=== PATIENT | male | born 1975 | race Caucasian/White ===

== ENCOUNTER 2019-10-09 19:43 | Emergency (ER) | payer OTHER ==
[2019-10-09 19:57] VITALS: TEMP 98.3
[2019-10-09] MEDS ORDERED: CEPHALEXIN 500 MG CAP PO STA (20:01)
[2019-10-09] MEDS ORDERED: LIDOCAINE 1% INJ 10MG/ML (20 ML MDV) SQ STA (20:01)
[2019-10-09] MEDS ORDERED: WATER FOR IRRIG, STERILE 1,000 ML BTL IRRIGATION ONE (20:02)
--- NOTE | 2019-10-09 20:30 | XR ---
EXAMINATION TYPE: XR finger RT DATE OF EXAM: 10/09/2019 COMPARISON: NONE HISTORY: Laceration TECHNIQUE: 3 views FINDINGS: I see no fracture nor dislocation. Joint spaces are fairly normal. There are no erosions. IMPRESSION: Negative right index finger exam. No fracture seen. No evidence of a foreign body.
[2019-10-09] MEDS ORDERED: DIPH,PERTUS(ACELL)TETVAC-LF 0.5 ML VIAL IM ONE (20:47)
[2019-10-09 20:57] VITALS: BP 140/90; PULSE 67; RESP 19
--- NOTE | 2019-10-09 21:00 | ED ---
General Adult HPI - General Chief complaint: Wound/Laceration Stated complaint: R Pointer Finger Lac Time Seen by Provider: 10/09/19 20:00 Source: patient, RN notes reviewed, old records reviewed Mode of arrival: ambulatory Limitations: no limitations - History of Present Illness Initial comments: 44-year-old female patient proceeded chief complaint laceration to distal aspect of second digit on right hand. Patient reports he was using an electric chain saw when he next the tip of this finger. Reports full range of motion of digit. Sensation is intact. Denies any other complaints. The date of last tetanus. Systemic: Pt denies fatigue, fever/chills, rash. Pt denies weakness, night sweats, weight loss. Neuro: Pt denies headache, visual disturbances, syncope or pre-syncope. HEENT: Pt denies ocular discharge or irritation, otalgia, rhinorrhea, pharyngitis or notable lymphadenopathy. Cardiopulmonary: Pt denies chest pain, SOB, heart palpitations, dyspnea on exertion. Abdominal/GI: Pt denies abdominal pain, n/v/d. : Pt denies dysuria, burning w/ urination, frequency/urgency. Denies new onset urinary or bowel incontinence. MSK: Pt denies myalgia, loss of strength or function in extremities. Neuro: Pt denies new onset weakness, paresthesias. - Related Data Allergies Allergy/AdvReac Type Severity Reaction Status Date / Time No Known Allergies Allergy Verified 10/09/19 19:50 Review of Systems ROS Statement: Those systems with pertinent positive or pertinent negative responses have been documented in the HPI. ROS Other: All systems not noted in ROS Statement are negative. Past Medical History Past Medical History: No Reported History History of Any Multi-Drug Resistant Organisms: None Reported Additional Past Surgical History / Comment(s): back surgery. hip surgery. Past Psychological History: PTSD Smoking Status: Never smoker Past Alcohol Use History: Rare Past Drug Use History: None Reported General Exam - General Exam Comments Initial Comments: Constitutional: NAD, AOX3, Pt has pleasant affect. HEENT: NC/AT, trachea midline, neck supple. Mucous membranes moist.EOM intact. There is no scleral icterus. No pallor noted. Cardiopulmonary: RRR, no murmurs, rubs or gallops, no JVD noted. Lungs CTAB in anterior and posterior jamison. No peripheral edema. Neuro: CN II-XII grossly intact. No raccon eyes MSK: Full active ROM in upper and lower extremities, 5/5 stregnth. Derm: 1cm laceration distal aspect of second digit on right hand. Pad of finger. Vigorously irrigated. No osseous process or ligamentous process no foreign body. Approximated 2 simple interrupted sutures. Limitations: no limitations Course Vital Signs 10/09/19 10/09/19 19:45 20:55 Temperature 98.3 F Pulse Rate 79 67 Respiratory 17 19 Rate Blood Pressure 142/66 140/90 O2 Sat by Pulse 97 97 Oximetry Procedures - Laceration Laceration #1 Consent Obtained: verbal consent Indication: laceration Site: other (finger 2nd digit right hand pad of distal finger ) Size (cm): 1 Description: linear Depth: simple, single layer Anesthetic Used: lidocaine 1% Anesthesia Technique: local infiltration Amount (mls): 2 Pre-repair: wound explored, irrigated extensively, deep structures intact (pt has full active ROM of finger before and after suture placement. Capillary refill <2 seconds. sensation intact. ) Type of Sutures: nylon Size of Sutures: 5-0 Number of Sutures: 2 Technique: simple, interrupted Patient Tolerated Procedure: well, no complications Medical Decision Making - Medical Decision Making 44-year-old male patient presents to chief complaint of finger laceration. Patient vital signs stable. Tetanus updated. Plain film negative. Approximated emergency department vigorously irrigated discharge with outpatient follow-up and return precautions. Case discussed with Dr. Briseno. Disposition Clinical Impression: Laceration Disposition: HOME SELF-CARE Condition: Stable Instructions (If sedation given, give patient instructions): Laceration (ED) Additional Instructions: Please return for suture removal: Hand: 7-10 days Please monitor for signs and symptoms of infection including: redness, warmth, drainage, discharge. Please return to ED if these signs or symptoms occur, new signs or symptoms develop or if condition worsens in anyway. Follow up with PCP in 1-[address] Malave is validation architect for new patients for a PCP. Call him first. I provided 2 other PCP's which are taking new patients. Is patient prescribed a controlled substance at d/c from ED?: No Referrals: None,Stated [Primary Care Provider] - 1-2 days Nabor Noonan MD [STAFF PHYSICIAN] - 1-2 days Dominick Christensen MD [REFERRING] - 1-2 days Luther Gray [STAFF PHYSICIAN] - 1-2 days
== END 2019-10-09 21:03 | disposition home or self-care (01) ==
LOC: EC 19:43
DX: S61.210A Laceration without foreign body of right index finger without damage to nail, initial encounter (principal); Z23 Encounter for immunization; W31.2XXA Contact with powered woodworking and forming machines, initial encounter
CPT/HCPCS: 73140; 90715; 99283; 12001; 90471; J2001

== ENCOUNTER 2019-10-28 14:13 | Emergency (ER) | payer OTHER ==
[2019-10-28 14:17] VITALS: BP 153/85; PULSE 92; RESP 16; TEMP 98.9
--- NOTE | 2019-10-28 14:26 | ED ---
Upper Extremity HPI - General Chief Complaint: Extremity Injury, Upper Stated Complaint: Left shoulder injury Time Seen by Provider: 10/28/19 14:18 Source: patient, RN notes reviewed, old records reviewed Mode of arrival: ambulatory Limitations: no limitations - History of Present Illness Initial Comments: This is a 44-year-old male DF for evaluation of shoulder pain patient did have shoulder pain recently this past month. Patient has been persistent in pain. Decreased range of motion of the left shoulder patient has severe pain with range of motion trauma was just starting again doing some moving and repetitive stress MD Complaint: Injury to:: left, shoulder -: month(s) Other Extremity Injury: Shoulder: Left Other Injuries: none Handedness: right Place: home Severity scale (1-10): 5 Improves With: none Worsens With: none Context: other (Recurrent usage) Associated Symptoms: denies other symptoms - Related Data Allergies Allergy/AdvReac Type Severity Reaction Status Date / Time No Known Allergies Allergy Verified 10/28/19 14:14 Review of Systems ROS Statement: Those systems with pertinent positive or pertinent negative responses have been documented in the HPI. ROS Other: All systems not noted in ROS Statement are negative. Past Medical History Past Medical History: No Reported History History of Any Multi-Drug Resistant Organisms: None Reported Additional Past Surgical History / Comment(s): back surgery. hip surgery. Past Psychological History: PTSD Smoking Status: Current every day smoker Past Alcohol Use History: Rare Past Drug Use History: None Reported General Exam Limitations: no limitations General appearance: alert, in no apparent distress Head exam: Present: atraumatic, normocephalic, normal inspection Eye exam: Present: normal appearance, PERRL, EOMI. Absent: scleral icterus, conjunctival injection, periorbital swelling ENT exam: Present: normal exam, mucous membranes moist Neck exam: Present: normal inspection. Absent: tenderness, meningismus, lymphadenopathy Respiratory exam: Present: normal lung sounds bilaterally. Absent: respiratory distress, wheezes, rales, rhonchi, stridor Cardiovascular Exam: Present: regular rate, normal rhythm, normal heart sounds. Absent: systolic murmur, diastolic murmur, rubs, gallop, clicks GI/Abdominal exam: Present: soft, normal bowel sounds. Absent: distended, tenderness, guarding, rebound, rigid Extremities exam: Present: normal inspection, full ROM, normal capillary refill. Absent: tenderness, pedal edema, joint swelling, calf tenderness Back exam: Present: normal inspection Neurological exam: Present: alert, oriented X3, CN II-XII intact Psychiatric exam: Present: normal affect, normal mood Skin exam: Present: warm, dry, intact, normal color. Absent: rash Course Vital Signs 10/28/19 14:14 Temperature 98.9 F Pulse Rate 92 Respiratory 16 Rate Blood Pressure 153/85 O2 Sat by Pulse 98 Oximetry - Reevaluation(s) Reevaluation #1: 10/28/19 14:24 Medical records reviewed Reevaluation #2: 10/28/19 14:44 Patient's pain is improved Medical Decision Making - Medical Decision Making 44 mailed ER with nonspecific left shoulder pain. X-rays otherwise negative pain is improved and patient can be discharged home - Radiology Data Radiology results: report reviewed (X-ray left shoulder is negative for acute disease), image reviewed Disposition Clinical Impression: Strain of shoulder, Frozen shoulder Disposition: HOME SELF-CARE Condition: Good Instructions (If sedation given, give patient instructions): Shoulder Sprain (ED) Is patient prescribed a controlled substance at d/c from ED?: No Referrals: Amina Kern DO [Primary Care Provider] - 1-2 days
[2019-10-28] MEDS ORDERED: traMADol 50 MG STARTER PACK 3 TAB BTL PO STA (14:36)
[2019-10-28] MEDS ORDERED: diazePAM 5 MG TAB PO STA (14:36)
[2019-10-28] MEDS ORDERED: traMADol 50 MG TAB PO STA (14:36)
[2019-10-28] MEDS ORDERED: dexAMETHasone 4 MG TAB PO STA (14:36)
[2019-10-28] MEDS ORDERED: KETOROLAC 60 MG/2 ML VIAL IM STA (14:36)
--- NOTE | 2019-10-28 15:09 | XR ---
EXAMINATION TYPE: XR shoulder complete LT DATE OF EXAM: 10/28/2019 COMPARISON: NONE HISTORY: Pain TECHNIQUE: 3 views FINDINGS: I see no fracture nor dislocation. Joint spaces are normal. There are no pathologic calcifi cations. IMPRESSION: Negative left shoulder exam. No fracture seen.
== END 2019-10-28 16:06 | disposition home or self-care (01) ==
LOC: EC 14:13
DX: S46.912A Strain of unspecified muscle, fascia and tendon at shoulder and upper arm level, left arm, initial encounter (principal); M75.02 Adhesive capsulitis of left shoulder; F17.200 Nicotine dependence, unspecified, uncomplicated; X50.9XXA Other and unspecified overexertion or strenuous movements or postures, initial encounter
CPT/HCPCS: 73030; 96372; 99284; J8540; J1885

== ENCOUNTER → 2019-11-30 | Outpatient (CLI) | payer OTHER ==
--- NOTE | 2019-11-30 13:58 | MR ---
EXAMINATION TYPE: MR shoulder LT wo con DATE OF EXAM: 11/30/2019 1:51 PM COMPARISON: NONE HISTORY: L shoulder pain TECHNIQUE: Multiplanar multispin echo imaging of the left shoulder was performed. FINDINGS: Rotator cuff : There is thickening and heterogeneity of the supraspinatus tendon compatible with form grader evelia tendinopathy. No evidence for full-thickness tear or partial tear. The subscapularis constituent of the rotator cuff is intact. Bursa: No bursal effusion or thickening is seen. Musculature: There is no muscular tear, contusion, or atrophy. Acromioclavicular joint : Subacromial spurring resulting in impingement. AC joint arthropathy identif ied. Osseous structures : There are no fractures or regions of abnormal bone marrow signal intensity. Long biceps tendon : The biceps tendon is normally situated within the bicipital groove. No complete or partial biceps tendon tear is present. Glenohumeral Joint fluid : There is no glenohumeral joint effusion. Cartilage and Bone : No focal hyaline cartilage defects are noted. No Hill-Sachs, reverse Hill-Sachs, or bony Bankart lesions are seen. Labrum : There are no SLAP or soft tissue Bankart lesions. No paralabral cysts are seen. OTHER FINDINGS : none IMPRESSION: 1. Chronic tendinopathy supraspinatus tendon with subacromial impingement.
== END | disposition home or self-care (01) ==
LOC: RADMRIMAIN 12:59
PROVIDERS: ATTEND Orthopaedic Surgery
DX: M67.814 Other specified disorders of tendon, left shoulder (principal)

== ENCOUNTER → 2019-11-30 | Outpatient (CLI) | payer OTHER ==
[2019-11-30 20:20] LABS: Albumin 4.9 g/dL (3.80-4.90); Albumin/Globulin Ratio 2.33 (1.60-3.17); Anion Gap 12.4 mmol/L (4.00-12.00); BUN/Creat Ratio 18.75 Ratio (12.00-20.00); Calcium 10.4 mg/dL (8.7-10.3); Carbon Dioxide 21.6 mmol/L (21.6-31.8); Globulin 2.1 g/dL (1.6-3.3); Non-African American GFR(CKD) 107.9 (60.0-200.0); Potassium 3.9 mmol/L (3.5-5.5); Total Bilirubin 0.7 mg/dL (0.2-1.2)
[2019-11-30 20:28] LABS: T4, Free (Free Thyroxine) 1.5 ng/dL (0.80-1.80)
[2019-11-30 20:49] LABS: Valproic Acid (Depakene) 16.1 ug/mL (50.0-100.0)
== END | disposition home or self-care (01) ==
LOC: LABWHC1 13:52
PROVIDERS: ATTEND Psychiatry & Neurology Psychiatry
DX: Z51.81 Encounter for therapeutic drug level monitoring (principal); Z79.899 Other long term (current) drug therapy
CPT/HCPCS: 36415; 80053; 80164; 84439; 84443

== ENCOUNTER → 2020-01-08 | Outpatient (CLI) | payer OTHER ==
[2020-01-08 11:13] LABS: Basophils # (A) 0.1 k/uL (0-0.2); Basophils % (A) 1 %; Eosinophils # (A) 0.2 k/uL (0-0.7); Eosinophils % (A) 3 %; HCT 45.1 % (39.0-53.0); HGB 15.2 gm/dL (13.0-17.5); Lymphocytes # (A) 2.2 k/uL (1.0-4.8); Lymphocytes % (A) 37 %; MCH 32.3 pg (25.0-35.0); MCHC 33.7 g/dL (31.0-37.0); MCV 95.7 fL (80.0-100.0); Mean Platelet Volume 7.1; Monocytes # (A) 0.4 k/uL (0-1.0); Monocytes % (A) 6 %; Neutrophils % (A) 51 %; Platelet Count 358 k/uL (150-450); RBC 4.71 m/uL (4.30-5.90)
[2020-01-08 11:19] LABS: Potassium 4.5 mmol/L (3.5-5.1)
== END | disposition home or self-care (01) ==
LOC: LABPAT 09:59
PROVIDERS: ATTEND Orthopaedic Surgery
DX: M75.41 Impingement syndrome of right shoulder (principal)
CPT/HCPCS: 36415; 80051; 85025

== ENCOUNTER 2020-01-17 05:36 | Day surgery (SDC) | payer OTHER ==
[2020-01-15 14:23] VITALS: BMI 37.6
--- NOTE | 2020-01-16 17:50 | HP ---
HISTORY AND PHYSICAL DATE OF SURGERY: 01/17/2020 Alfonso Tyson is a 44-year-old gentleman seen with progressive left shoulder pain. Options for treatment were discussed with him. He elected to proceed with left shoulder arthroscopy. Consent regarding the procedure was obtained. PAST MEDICAL HISTORY: Anxiety. PAST SURGICAL HISTORY: Total hip arthroplasty, lumbar spine surgery. DAILY MEDICATIONS: Omeprazole, Depakote, Prozac. ALLERGIES: NONE. SOCIAL HISTORY: He smokes cigarettes currently. PHYSICAL EVALUATION OF THE LEFT SHOULDER: Flexion 30 degrees, abduction 30 degrees. External rotation is 10 degrees. Tenderness along the anterolateral acromion. Tenderness along the rotator cuff insertion site. Impingement is positive at 60 degrees. Drop-arm sign is positive. His distal neurovascular exam is intact. RADIOGRAPHS: Radiographs of the left shoulder revealed a type 2 anterior acromion, evidence for acromioclavicular joint osteoarthritis. Left shoulder MRI revealed chronic rotator cuff tendinopathy, impingement and acromioclavicular joint osteoarthritis. IMPRESSION: 1. Left shoulder impingement with probable rotator cuff tear. 2. Left shoulder acromioclavicular joint osteoarthritis. PLAN: Left shoulder arthroscopy with subacromial decompression, arthroscopic rotator cuff repair, arthroscopic Renny procedure and debridement. MMODL / IJN: [id number] /
[~2020-01-17 05:36] MED LIST: ceFAZolin 3 GM in SODIUM CHLORIDE 0.9% 100 ML IVPB ONE
[2020-01-17] MEDS ORDERED: LACTATED RINGERS 1,000 ML IV SCH (05:38)
[2020-01-17] MEDS ORDERED: DEXAMETHASONE SOD PHOSPHATE 10 MG/ML 1 ML VIAL IV ONE (05:38)
[2020-01-17] MEDS ORDERED: MIDAZOLAM 2 MG/2 ML VIAL IV PRN (05:38)
[2020-01-17] MEDS ORDERED: ONDANSETRON 4 MG/2 ML VIAL IVP ONE (05:38)
[2020-01-17] MEDS ORDERED: PROPOFOL 10 MG/ML 20 ML VIAL IV ONE (07:24)
[2020-01-17] MEDS ORDERED: ROCURONIUM 10 MG/ML (10 ML VIAL) IV ONE (07:24)
[2020-01-17] MEDS ORDERED: GLYCOPYRROLATE 0.2 MG/ML 2 ML VIAL ONE (07:24)
[2020-01-17] MEDS ORDERED: NEOSTIGMINE 1 MG/ML 10 ML VIAL ONE (07:24)
[2020-01-17] MEDS ORDERED: fentaNYL (PF) 50 MCG/ML 2 ML AMP ONE (07:24)
[2020-01-17] MEDS ORDERED: SUCCINYLCHOLINE CHLORIDE VIAL 200 MG/10 ML VIAL IV ONE (07:24)
[2020-01-17] MEDS ORDERED: MIDAZOLAM 2 MG/2 ML VIAL ONE (07:24)
[2020-01-17] MEDS ORDERED: ROPIVACAINE 5 MG/ML 30 ML VIAL ONE (07:24)
[2020-01-17] MEDS ORDERED: LIDOCAINE 1% INJ 10MG/ML (20 ML MDV) ONE (07:24)
[2020-01-17] MEDS: HYDROmorphone 0.5 MG/0.5 ML SYRINGE IVP PRN ×4 (09:01→09:24)
--- NOTE | 2020-01-17 09:11 | P.OP ---
Date of Procedure: 01/17/20 Preoperative Diagnosis: Left shoulder impingement Postoperative Diagnosis: 1. Left shoulder rotator cuff tear 2. Left shoulder impingement Procedure(s) Performed: 1. Left shoulder arthroscopic rotator cuff repair 2. Left shoulder arthroscopic subacromial decompression Implants: 14.75 Arthrex swivel lock anchor Anesthesia: GETA, regional (Interscalene block) Surgeon: Raffy Guerin Estimated Blood Loss (ml): 10 Pathology: none sent Condition: stable Disposition: PACU Indications for Procedure: 44-year-old patient seen with progressive left shoulder pain. After treatment options were discussed, he elected to proceed with arthroscopy. Operative Findings: See description of procedure Description of Procedure: Patient underwent an interscalene block by department of anesthesia. The patient was then taken to the operative suite. The patient underwent a general anesthetic by the department of anesthesia. The patient was placed into a lateral position and secured. There was appropriate padding of the bony prominence. Left shoulder was then prepped and draped in normal sterile orthopedic fashion. We placed the extremity in 10 pounds of longitudinal traction. A posterior incision was now made for a posterior working portal site. The trocar and cannula were inserted into the glenohumeral joint. Arthroscopy was initiated. Spinal needle was now inserted anteriorly, to ascertain the anterior working portal site. An incision was now made in that area, a trocar was inserted followed by a probe. There was some mild fraying of the anterior labrum. The biceps tendon was stable. The remainder labrum was stable. There was mild grade 1 chondromalacia. I introduced a motorized shaver and debrided that small area of labral fraying. I reintroduced the probe and noted good stability about the residual meniscus. Instruments were now removed from the glenohumeral joint. Utilizing the posterior working portal site, the trocar and cannula were inserted into the subacromial space. Arthroscopy initiated. I made an incision 2 fingerbreadths lateral to the acromion. I introduced my trocar followed by my ArthroCare ablator. I now began ablating thick subacromial bursal tissue, which exposed the undersurface of the anterior acromion. There was diminished subacromial space. There was a very prominent anterior acromion. A motorized bur was introduced and a subacromial decompression was performed. I also excised some osteophytes off the inferior aspect of the distal clavicle. The AC joint was visualized and noted to be moderately arthritic. I did not think enough t oward a Renny procedure. I turned my attention to the rotator cuff tendon. There was some partial tearing along the anterior distal supraspinatus. Upon probing the area there was a full-thickness perforation present. A motorize shaver was introduced I debrided the margins getting down to stable tendon tissue. The defect measured 11.25 cm. I abraded the footprint with a motorized bur. I passed 2 everted mattress sutures through good bites of rotator cuff tendon with the assistance of Angus PEREA. I now punched a hole in the footprint area for insertion of an anchor. I now passed all 4 limbs of suture through the eyelet of a 4.75 Arthrex swivel lock anchor. I placed the eyelet into our pre-punched hole. I held it in position while Angus PEREA tensioned all 4 sutures and then deployed the anchor with good fixation noted. All residual suture limbs were now clipped. We had good compression of the tendon along the entire footprint. I injected 1 mL Renyte intra-articular. Instruments now removed from the portal sites. All portal sites were approximated with nylon suture. Sterile dressings were applied followed by a shoulder sling. Dwayne PEREA assisted in this case. The patient was awakened, transferred to a bed, and taken to recovery in stable condition.
[2020-01-17 09:12] VITALS: TEMP 98
[2020-01-17 09:50] VITALS: RESP 16
[2020-01-17 10:20] VITALS: BP 123/75; PULSE 94
--- NOTE | 2020-01-17 12:21 | P.ANPRN ---
Procedure Note - Anesthesia - Nerve Block Performed Left Interscalene Single Time Out Performed: Yes ([id number]) Date of Procedure: 01/17/20 Procedure Start Time: 06:54 Procedure Stop Time: 07:01 Location of Patient: PreOp Indication: Acute Post-Operative Pain, Requested by Surgeon Specifically requested for management of pain by DrIsrael: Raffy Guerin Sedation Type: Sedate with meaningful contact maintained Preparation: Sterile Prep Position: Supine Catheter: None Needle Types: Pajunk Needle Gauge: 21 Ultrasound used to visualize needle placement: Yes Ultrasound used to observe medication spread: Yes Injectate: 0.5% Ropivacaine (see comment for volume) (30cc) Blood Aspirated: No Pain Paresthesia on Injection Noted: No Resistance on Injection: Normal Image Stored and Saved: Yes Events: Uneventful and Well Tolerated
== END 2020-01-17 10:37 | disposition home or self-care (01) ==
LOC: OR 05:36
PROVIDERS: ATTEND Orthopaedic Surgery
DX: M75.102 Unspecified rotator cuff tear or rupture of left shoulder, not specified as traumatic (principal); M25.812 Other specified joint disorders, left shoulder; M94.212 Chondromalacia, left shoulder; M25.712 Osteophyte, left shoulder; F41.9 Anxiety disorder, unspecified; F43.10 Post-traumatic stress disorder, unspecified; G47.33 Obstructive sleep apnea (adult) (pediatric); Z99.89 Dependence on other enabling machines and devices; F17.210 Nicotine dependence, cigarettes, uncomplicated; Z79.891 Long term (current) use of opiate analgesic; Z79.899 Other long term (current) drug therapy
CPT/HCPCS: 64415; 76942; 29826; 29827; C1713; Q4212; J2250; J0330; J1100; J2710; J0690; J2405; J2001; J3010; J2795; J2704; J1170

== ENCOUNTER 2020-04-14 14:30 | Emergency (ER) | payer OTHER ==
[2020-04-14 14:48] VITALS: RESP 18; TEMP 98
[2020-04-14] MEDS ORDERED: SODIUM CHLORIDE 0.9% 1,000 ML IV STA (15:01)
[2020-04-14] MEDS ORDERED: KETOROLAC 15 MG/ML 1 ML VIAL IVP STA (15:01)
[2020-04-14] MEDS ORDERED: MORPHINE SULFATE 4 MG/ML SYRINGE IV STA (15:01)
--- NOTE | 2020-04-14 15:05 | ED ---
General Adult HPI - General Chief complaint: Abdominal Pain Stated complaint: Poss kidney stone Time Seen by Provider: 04/14/20 14:53 Source: patient Mode of arrival: ambulatory Limitations: no limitations - History of Present Illness Initial comments: Dictation was produced using [employer] dictation software. please excuse any grammatical, word or spelling errors. This patient was cared for during a federal and state declared state of emergency secondary to Covid 19 Chief Complaint: 44-year-old male presents with abnormal outpatient CT History of Present Illness: Is a 44-year-old male who has past medical history of kidney stones. Patient has extensive history. 8 years ago patient states he began having kidney stones and passed them frequently. Patient presented to the [facility] in [place]. He had an outpatient CT performed. Patient was instructed to come to the emergency department for treatment of kidney stone. P gelacio does not have any other details of the size he does report that it's in the distal one third of the right ureter. Patient states that since last night he's been having right-sided flank pain. Patient states the symptoms are typical of his usual kidney stone pain. Denies any constitutional symptoms. The ROS documented in this emergency department record has been reviewed and confirmed by me. Those systems with pertinent positive or negative responses have been documented in the HPI. All other systems are other negative and/or noncontributory. PHYSICAL EXAM: General Impression: Alert and oriented x3, mild distress secondary to pain HEENT: Normocephalic atraumatic, extra-ocular movements intact, pupils equal and reactive to light bilaterally, mucous membranes moist. Cardiovascular: Heart regular rate and rhythm Chest: Able to complete full sentences, no retractions, no tachypnea Abdomen: abdomen soft, non-tender, non-distended, no organomegaly Musculoskeletal: Pulses present and equal in all extremities, no peripheral edema Motor: no focal deficits noted Neurological: CN II-XII grossly intact, no focal motor or sensory deficits noted Skin: Intact with no visualized rashes Psych: Normal affect and mood ED course: 44-year-old male presents today with kidney stones seen on outpatient computed tomography scan. Signs upon arrival are within acceptable limits. Patient is in mild distress secondary to pain. Patient is extensive history of kidney stones. States that he has a hypercalcemic issue that causes him to form frequent calcium oxalate kidney stones.An attempt was made to obtain report or any sort of confirmation of patient's CT results from today. My escrow secretary did call the CAT scan department at the [place]. Also, they are unable to provide us any reports from today scan. Neither, either able to provide us with the actual image. Laboratory evaluation obtained. CBC, metabolic panel, urinalysis is obtained. Most of labs are unremarkable except for 136 red blood cells. Ultrasound was obtained showing mild right-sided hydronephrosis. The chin reevaluated after IV fluids and analgesics with stable medical condition. Patient is agreeable for discharge. He has a urologist in [place] however generally his primary care doctor manages his kidney stones and some occasional. Patient given prescription for analgesia. Told to to follow-up with his primary care physician. - Related Data Home Medications Medication Instructions Recorded Confirmed FLUoxetine HCL [PROzac] 20 mg PO DAILY 01/15/20 01/17/20 HYDROcodone/APAP 7.5-325MG [Ridgeway 1 tab PO Q6HR PRN 01/15/20 01/17/20 7.5-325] Previous Rx's Medication Instructions Recorded oxyCODONE HCL/ACETAMINOPHEN 1 tab PO Q6HR PRN 3 Days #28 tab 01/17/20 [Percocet 7.5-325 mg] HYDROcodone/APAP 5-325MG [Ridgeway 1 tab PO Q6HR PRN 3 Days #12 tab 04/14/20 5-325] Allergies Allergy/AdvReac Type Severity Reaction Status Date / Time No Known Allergies Allergy Verified 04/14/20 14:48 Review of Systems ROS Statement: Those systems with pertinent positive or pertinent negative responses have been documented in the HPI. ROS Other: All systems not noted in ROS Statement are negative. Past Medical History Past Medical History: GERD/Reflux, Hypertension History of Any Multi-Drug Resistant Organisms: None Reported Past Surgical History: Back Surgery, Joint Replacement, Orthopedic Surgery Additional Past Surgical History / Comment(s): back surgery. hip surgery. Past Psychological History: PTSD Smoking Status: Former smoker Past Alcohol Use History: None Reported Past Drug Use History: None Reported General Exam Limitations: no limitations Course Vital Signs 04/14/20 04/14/20 14:44 15:21 Temperature 98.0 F Pulse Rate 82 81 Respiratory 18 18 Rate Blood Pressure 160/101 152/100 O2 Sat by Pulse 96 98 Oximetry Medical Decision Making - Lab Data Result diagrams: 04/14/20 15:21 04/14/20 15:21 Lab Results 04/14/20 04/14/20 04/14/20 Range/Units 15:21 15:21 15:21 WBC 11.4 H (3.8-10.6) k/uL RBC 4.88 (4.30-5.90) m/uL Hgb 15.3 (13.0-17.5) gm/dL Hct 44.4 (39.0-53.0) % MCV 91.0 (80.0-100.0) fL MCH 31.3 (25.0-35.0) pg MCHC 34.5 (31.0-37.0) g/dL RDW 12.5 (11.5-15.5) % Plt Count 409 (150-450) k/uL MPV 6.9 Neutrophils % 60 % Lymphocytes % 29 % Monocytes % 6 % Eosinophils % 3 % Basophils % 1 % Neutrophils # 6.9 (1.3-7.7) k/uL Lymphocytes # 3.3 (1.0-4.8) k/uL Monocytes # 0.7 (0-1.0) k/uL Eosinophils # 0.3 (0-0.7) k/uL Basophils # 0.1 (0-0.2) k/uL Sodium 141 (137-145) mmol/L Potassium 4.1 (3.5-5.1) mmol/L Chloride 104 (98-107) mmol/L Carbon Dioxide 25 (22-30) mmol/L Anion Gap 12 mmol/L BUN 18 (9-20) mg/dL Creatinine 0.92 (0.66-1.25) mg/dL Est GFR (CKD-EPI)AfAm >90 (>60 ml/min/1.73 sqM) Est GFR (CKD-EPI)NonAf >90 (>60 ml/min/1.73 sqM) Glucose 93 (74-99) mg/dL Calcium 10.2 (8.4-10.2) mg/dL Urine Color Yellow Urine Appearance Clear (Clear) Urine pH 5.5 (5.0-8.0) Ur Specific [place]ley 1.021 (1.001-1.035) Urine Protein Trace H (Negative) Urine Glucose (UA) Negative (Negative) Urine Ketones Negative (Negative) Urine Blood Large H (Negative) Urine Nitrite Negative (Negative) Urine Bilirubin Negative (Negative) Urine Urobilinogen <2.0 (<2.0) mg/dL Ur Leukocyte Esterase Trace H (Negative) Urine RBC 136 H (0-5) /hpf Urine WBC 5 (0-5) /hpf Urine Mucus Few H (None) /hpf Disposition Clinical Impression: Kidney stone Disposition: HOME SELF-CARE Condition: Fair Instructions (If sedation given, give patient instructions): Kidney Stones (ED) Prescriptions: HYDROcodone/APAP 5-325MG [Ridgeway 5-325] 1 tab PO Q6HR PRN 3 Days #12 tab PRN Reason: Severe Pain Is patient prescribed a controlled substance at d/c from ED?: Yes If prescribed controlled substance>3 days was MAPS reviewed?: Prescribed <3 Days Referrals: Amina Kern DO [Primary Care Provider] - 1-2 days Time of Disposition: 17:04
[2020-04-14 15:29] LABS: Basophils # (A) 0.1 k/uL (0-0.2); Basophils % (A) 1 %; Eosinophils # (A) 0.3 k/uL (0-0.7); Eosinophils % (A) 3 %; HCT 44.4 % (39.0-53.0); HGB 15.3 gm/dL (13.0-17.5); Lymphocytes # (A) 3.3 k/uL (1.0-4.8); Lymphocytes % (A) 29 %; MCH 31.3 pg (25.0-35.0); MCHC 34.5 g/dL (31.0-37.0); Mean Platelet Volume 6.9; Monocytes # (A) 0.7 k/uL (0-1.0); Monocytes % (A) 6 %; Neutrophils # (A) 6.9 k/uL (1.3-7.7); Neutrophils % (A) 60 %; Platelet Count 409 k/uL (150-450); RBC 4.88 m/uL (4.30-5.90); RDW 12.5 % (11.5-15.5); WBC 11.4 k/uL (3.8-10.6)
[2020-04-14 15:32] LABS: Appearance,Urine Clear (Clear); Bilirubin,Urine Negative (Negative); Blood,Urine Large (Negative); Color,Urine Yellow; Glucose,Urine (UA) Negative (Negative); Ketones,Urine Negative (Negative); Leukocyte Esterase,Urine Trace (Negative); Mucus,Urine Few /hpf; Nitrite,Urine Negative (Negative); PH, Urine 5.5 (5.0-8.0); Protein,Urine Trace (Negative); RBC,Urine 136 /hpf (0-5); Specific Gravity,Urine 1.021 (1.001-1.035); Urobilinogen,Urine <2.0 mg/dL (<2.0); WBC,Urine 5 /hpf (0-5)
[2020-04-14 15:38] LABS: African American GFR (CKD) >90 (>60 ml/min/1.73 sqM); Anion Gap 12 mmol/L; Blood Urea Nitrogen 18 mg/dL (9-20); Calcium 10.2 mg/dL (8.4-10.2); Carbon Dioxide 25 mmol/L (22-30); Chloride 104 mmol/L (98-107); Glucose 93 mg/dL (74-99); Non-African American GFR(CKD) >90 (>60 ml/min/1.73 sqM); Potassium 4.1 mmol/L (3.5-5.1); Sodium 141 mmol/L (137-145)
--- NOTE | 2020-04-14 16:50 | US ---
EXAMINATION TYPE: US kidneys/renal and bladder DATE OF EXAM: 04/14/2020 COMPARISON: NONE CLINICAL HISTORY: right flank pain. RLQ pain hx of stone EXAM MEASUREMENTS: Right Kidney: 13.7 x 7.9 x 5.7 cm Left Kidney: 13.5 x 6.1 x 5.1 cm Right Kidney: No definite stone visualized mild hyd Left Kidney: No hydronephrosis or masses seen Bladder: anechoic Bilateral Jets seen: No just right No nephrolithiasis is seen. No masses are identified. The urinary bladder is anechoic. Bilateral ureteral jets are seen. IMPRESSION: There is mild right-sided hydronephrosis. No evidence of a renal mass. There is right side ureteral j et demonstrated. Kidneys appear enlarged.
[2020-04-14 17:37] VITALS: BP 148/87; PULSE 79
== END 2020-04-14 17:37 | disposition home or self-care (01) ==
LOC: EC 14:30
DX: N20.0 Calculus of kidney (principal); F43.10 Post-traumatic stress disorder, unspecified; Z79.899 Other long term (current) drug therapy; Z87.891 Personal history of nicotine dependence
CPT/HCPCS: 36415; 80048; 85025; 81001; 76770; 99284; 96374; 96375; 96361 ×2; J2270; J1885

== ENCOUNTER 2020-04-18 12:10 | Emergency (ER) | payer OTHER ==
[2020-04-18 12:22] VITALS: RESP 18
[2020-04-18] MEDS ORDERED: MORPHINE SULFATE 4 MG/ML SYRINGE IV STA (12:33)
[2020-04-18] MEDS ORDERED: SODIUM CHLORIDE 0.9% 1,000 ML IV STA (12:33)
[2020-04-18] MEDS ORDERED: KETOROLAC 15 MG/ML 1 ML VIAL IVP STA (12:33)
--- NOTE | 2020-04-18 12:35 | ED ---
General Adult HPI - General Chief complaint: Abdominal Pain Stated complaint: revisit - kidney stone Time Seen by Provider: 04/18/20 12:23 Source: patient Mode of arrival: ambulatory Limitations: no limitations - History of Present Illness Initial comments: Dictation was produced using [employer] dictation software. please excuse any grammatical, word or spelling errors. This patient was cared for during a federal and state declared state of emerge ncy secondary to Covid 19 Chief Complaint: 44-year-old male presents emergency department for persistent right-sided flank pain. History of Present Illness: 44-year-old man who was seen by myself 4 days ago for kidney stone. Patient has history of kidney stones for several years. He had a outpatient CT performed 4 days ago that showed nephrolithiasis. At that time we attempted to obtain patient's image or at least the radiology read and was unable to do so. Patient states that since being discharged from the emergency room that day he reports that his symptoms have been persistent and not really improving. Denies any constitutional symptoms. No history states that he does have some mild left-sided flank pain as well. He does feel some chills. Denies any nausea or vomiting. The ROS documented in this emergency department record has been reviewed and confirmed by me. Those systems with pertinent positive or negative responses have been documented in the HPI. All other systems are other negative and/or noncontributory. PHYSICAL EXAM: General Impression: Alert and oriented x3, mild distress secondary to pain. HEENT: Normocephalic atraumatic, extra-ocular movements intact, pupils equal and reactive to light bilaterally, mucous membranes moist. Cardiovascular: Heart regular rate and rhythm Chest: Able to complete full sentences, no retractions, no tachypnea Abdomen: abdomen soft, non-tender, non-distended, no organomegaly Musculoskeletal: Pulses present and equal in all extremities, no peripheral edema Motor: no focal deficits noted Neurological: CN II-XII grossly intact, no focal motor or sensory deficits noted Skin: Intact with no visualized rashes Psych: Normal affect and mood ED course: 44-year-old male with clinical presentation consistent with persistent kidney stone pain. Vital signs upon arrival are within acceptable limits. Laboratory evaluation obtained. CBC, metabolic panel is unremarkable. Urinalysis shows 8 white blood cells. Patient reevaluated at bedside found to be in stable medical condition. Disposition options were discussed with patient. He has an appointment with his primary care physician and urologist early next week. He is agreeable for discharge. States that his symptoms are improved. Patient given by mouth analgesia to go home with. - Related Data Home Medications Medication Instructions Recorded Confirmed FLUoxetine HCL [PROzac] 20 mg PO DAILY 01/15/20 01/17/20 HYDROcodone/APAP 7.5-325MG [[place] 1 tab PO Q6HR PRN 01/15/20 01/17/20 7.5-325] Previous Rx's Medication Instructions Recorded oxyCODONE HCL/ACETAMINOPHEN 1 tab PO Q6HR PRN 3 Days #28 tab 01/17/20 [Percocet 7.5-325 mg] HYDROcodone/APAP 5-325MG [[place] 1 tab PO Q6HR PRN 3 Days #12 tab 04/14/20 5-325] HYDROcodone/APAP 5-325MG [[place] 1 tab PO Q6HR PRN 3 Days #18 tab 04/18/20 5-325] Allergies Allergy/AdvReac Type Severity Reaction Status Date / Time No Known Allergies Allergy Verified 04/18/20 12:21 Review of Systems ROS Statement: Those systems with pertinent positive or pertinent negative responses have been documented in the HPI. ROS Other: All systems not noted in ROS Statement are negative. Past Medical History Past Medical History: GERD/Reflux, Hypertension Additional Past Medical History / Comment(s): kidney stones History of Any Multi-Drug Resistant Organisms: None Reported Past Surgical History: Back Surgery, Joint Replacement, Orthopedic Surgery Additional Past Surgical History / Comment(s): back surgery. hip surgery. Past Psychological History: PTSD Smoking Status: Former smoker Past Alcohol Use History: None Reported Past Drug Use History: None Reported General Exam Limitations: no limitations Course Vital Signs 04/18/20 12:19 Temperature 99.1 F Pulse Rate 83 Respiratory 18 Rate Blood Pressure 146/98 O2 Sat by Pulse 98 Oximetry Medical Decision Making - Lab Data Result diagrams: 04/18/20 12:16 04/18/20 12:16 Lab Results 04/18/20 04/18/20 04/18/20 Range/Units 12:16 12:16 12:16 WBC 8.3 (3.8-10.6) k/uL RBC 4.53 (4.30-5.90) m/uL Hgb 14.4 (13.0-17.5) gm/dL Hct 41.0 (39.0-53.0) % MCV 90.6 (80.0-100.0) fL MCH 31.7 (25.0-35.0) pg MCHC 35.0 (31.0-37.0) g/dL RDW 12.3 (11.5-15.5) % Plt Count 370 (150-450) k/uL MPV 6.9 Neutrophils % 57 % Lymphocytes % 32 % Monocytes % 6 % Eosinophils % 2 % Basophils % 1 % Neutrophils # 4.7 (1.3-7.7) k/uL Lymphocytes # 2.6 (1.0-4.8) k/uL Monocytes # 0.5 (0-1.0) k/uL Eosinophils # 0.2 (0-0.7) k/uL Basophils # 0.1 (0-0.2) k/uL Sodium 138 (137-145) mmol/L Potassium 3.9 (3.5-5.1) mmol/L Chloride 103 (98-107) mmol/L Carbon Dioxide 25 (22-30) mmol/L Anion Gap 10 mmol/L BUN 15 (9-20) mg/dL Creatinine 0.70 (0.66-1.25) mg/dL Est GFR (CKD-EPI)AfAm >90 (>60 ml/min/1.73 sqM) Est GFR (CKD-EPI)NonAf >90 (>60 ml/min/1.73 sqM) Glucose 97 (74-99) mg/dL Calcium 9.5 (8.4-10.2) mg/dL Urine Color Yellow Urine Appearance Clear (Clear) Urine pH 5.5 (5.0-8.0) Ur Specific [place] 1.013 (1.001-1.035) Urine Protein Negative (Negative) Urine Glucose (UA) Negative (Negative) Urine Ketones Negative (Negative) Urine Blood Trace H (Negative) Urine Nitrite Negative (Negative) Urine Bilirubin Negative (Negative) Urine Urobilinogen <2.0 (<2.0) mg/dL Ur Leukocyte Esterase Negative (Negative) Urine RBC 1 (0-5) /hpf Urine WBC 8 H (0-5) /hpf Urine Bacteria Rare H (None) /hpf Disposition Clinical Impression: Kidney stone Disposition: HOME SELF-CARE Condition: Good Instructions (If sedation given, give patient instructions): Kidney Stones (ED) Prescriptions: HYDROcodone/APAP 5-325MG [[place] 5-325] 1 tab PO Q6HR PRN 3 Days #18 tab PRN Reason: Severe Pain Is patient prescribed a controlled substance at d/c from ED?: Yes If prescribed controlled substance>3 days was MAPS reviewed?: Prescribed <3 Days Referrals: Gabriel Kern MD [Primary Care Provider] - 1-2 days Time of Disposition: 13:38
[2020-04-18 12:54] LABS: Basophils # (A) 0.1 k/uL (0-0.2); Basophils % (A) 1 %; Eosinophils # (A) 0.2 k/uL (0-0.7); Eosinophils % (A) 2 %; HGB 14.4 gm/dL (13.0-17.5); Lymphocytes # (A) 2.6 k/uL (1.0-4.8); Lymphocytes % (A) 32 %; MCH 31.7 pg (25.0-35.0); MCV 90.6 fL (80.0-100.0); Mean Platelet Volume 6.9; Monocytes # (A) 0.5 k/uL (0-1.0); Monocytes % (A) 6 %; Neutrophils # (A) 4.7 k/uL (1.3-7.7); Neutrophils % (A) 57 %; Platelet Count 370 k/uL (150-450); RBC 4.53 m/uL (4.30-5.90); RDW 12.3 % (11.5-15.5); WBC 8.3 k/uL (3.8-10.6)
[2020-04-18 13:05] LABS: African American GFR (CKD) >90 (>60 ml/min/1.73 sqM); Anion Gap 10 mmol/L; Blood Urea Nitrogen 15 mg/dL (9-20); Calcium 9.5 mg/dL (8.4-10.2); Carbon Dioxide 25 mmol/L (22-30); Chloride 103 mmol/L (98-107); Glucose 97 mg/dL (74-99); Non-African American GFR(CKD) >90 (>60 ml/min/1.73 sqM); Potassium 3.9 mmol/L (3.5-5.1); Sodium 138 mmol/L (137-145)
[2020-04-18 13:16] LABS: Appearance,Urine Clear (Clear); Bacteria,Urine Rare /hpf; Bilirubin,Urine Negative (Negative); Blood,Urine Trace (Negative); Color,Urine Yellow; Glucose,Urine (UA) Negative (Negative); Ketones,Urine Negative (Negative); Leukocyte Esterase,Urine Negative (Negative); Nitrite,Urine Negative (Negative); PH, Urine 5.5 (5.0-8.0); Protein,Urine Negative (Negative); RBC,Urine 1 /hpf (0-5); Specific Gravity,Urine 1.013 (1.001-1.035); Urobilinogen,Urine <2.0 mg/dL (<2.0); WBC,Urine 8 /hpf (0-5)
--- NOTE | 2020-04-18 13:16 | XR ---
EXAMINATION TYPE: XR abdomen 1V DATE OF EXAM: 04/18/2020 1:02 PM CLINICAL HISTORY: Bilateral flank pain and nausea. History of kidney stones. TECHNIQUE: Two Upright KUB images of the abdomen are obtained. COMPARISON: None. FINDINGS: Scattered gas is seen in non-distended stomach and small bowel loops. Gas and fecal materia l is seen in non-distended colon. There is 9 mm calculus lower pole left kidney. There are smaller ad jacent 5 mm calculus. Suspect smaller 3 to 4 mm left calculus midpole level just below 12 rib. Puncta te densities right kidney could reflect fecal debris or tiny calculi. No pneumoperitoneum. Surgical c hange lumbosacral junction and right hip. Lung bases clear. IMPRESSION: Left-sided nephrolithiasis . Possible punctate right-sided nephrolithiasis.
[2020-04-18 14:10] VITALS: BP 132/88; PULSE 88; TEMP 98.2
== END 2020-04-18 14:24 | disposition home or self-care (01) ==
LOC: EC 12:10
DX: N20.0 Calculus of kidney (principal); Z87.891 Personal history of nicotine dependence
CPT/HCPCS: 36415; 80048; 85025; 81001; 74018; 99284; 96374; 96375; 96361; J2270; J1885

== ENCOUNTER → 2020-09-25 | Outpatient (CLI) | payer OTHER | END | disposition home or self-care (01) | DX: M47.812 Spondylosis without myelopathy or radiculopathy, cervical region (principal) ==

== ENCOUNTER 2020-10-10 15:25 | Emergency (ER) | payer OTHER ==
[2020-10-10 15:38] VITALS: BP 136/100; PULSE 103; RESP 18; TEMP 98
[2020-10-10] MEDS ORDERED: MORPHINE SULFATE 4 MG/ML SYRINGE IVP STA (16:30)
[2020-10-10] MEDS ORDERED: ceFAZolin 1,000 MG VIAL (IM USE) IM STA (16:30)
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
[2020-10-10] MEDS ORDERED: LIDOCAINE 1% INJ 10MG/ML (20 ML MDV) SQ ONE (17:18)
[2020-10-10] MEDS ORDERED: BACITRACIN OINT 1 EACH PACKET TOPICAL ONE (17:18)
[2020-10-10] MEDS ORDERED: HYDROmorphone 1 MG/ML 1 ML SYRINGE IVP STA (17:27)
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
== END 2020-10-10 18:37 | disposition home or self-care (01) ==
LOC: EC 15:25
DX: S81.811A Laceration without foreign body, right lower leg, initial encounter (principal); I10 Essential (primary) hypertension; K21.9 Gastro-esophageal reflux disease without esophagitis; Z79.891 Long term (current) use of opiate analgesic; Z87.891 Personal history of nicotine dependence; W26.8XXA Contact with other sharp object(s), not elsewhere classified, initial encounter
CPT/HCPCS: 73590; 12001; 96374; 96375; 96372; 99283; J2270; J0690; J2001; J1170

== ENCOUNTER → 2021-01-29 | Outpatient (CLI) | payer OTHER ==
--- NOTE | 2021-01-29 21:32 | MR ---
EXAMINATION TYPE: MR lumbar spine wo/w con DATE OF EXAM: 01/29/2021 COMPARISON: NONE HISTORY: Chronic low back pain that radiates down both legs, symptoms for several years. History of m ultiple surgeries TECHNIQUE: Multiplanar, multisequence images of the lumbar spine is performed without and with IV contrast, util izing 13 mL intravenous Gadavist FINDINGS: Sagittal images of the lumbar spine show vertebral body heights and alignment to appear sat isfactory. There is artifact from surgical change L5-S1 level with posterior fusion hardware along wi th artificial disc material and anterior fusion hardware. Disc height and hydration maintained above the L5 level The conus medullaris is normal in position and signal extending inferior L1 level. The bone marrow signal intensity is within normal limits. No abnormal postcontrast enhancement. Axial images show T12-L1, L1-L2, L2-L3, L3-L4, and L4-L5 levels all to appear within normal limits. Axial images at the L5-S1 level show artifact from surgical change and disc material. Spinal canal is preserved. Patent bilateral neural foramina. Paraspinal muscle bulk is maintained. IMPRESSION: Postsurgical change L5-S1 level with satisfactory alignment. No significant degenerative change identified above this level.
== END | disposition home or self-care (01) ==
LOC: RADMRIMAIN 16:33
PROVIDERS: ATTEND Family Medicine
DX: M54.16 Radiculopathy, lumbar region (principal)
CPT/HCPCS: 72158; A9585

== ENCOUNTER 2021-03-29 18:07 | Emergency (ER) | payer OTHER ==
[2021-03-29 20:12] LABS: Basophils # (A) 0.1 k/uL (0-0.2); Basophils % (A) 1 %; Eosinophils # (A) 0.3 k/uL (0-0.7); Eosinophils % (A) 3 %; HCT 39.1 % (39.0-53.0); HGB 13.5 gm/dL (13.0-17.5); Lymphocytes # (A) 3.6 k/uL (1.0-4.8); Lymphocytes % (A) 34 %; MCH 32.1 pg (25.0-35.0); MCHC 34.4 g/dL (31.0-37.0); MCV 93.3 fL (80.0-100.0); Mean Platelet Volume 7.2; Monocytes # (A) 0.5 k/uL (0-1.0); Monocytes % (A) 5 %; Neutrophils # (A) 5.8 k/uL (1.3-7.7); Neutrophils % (A) 55 %; Platelet Count 390 k/uL (150-450); RBC 4.19 m/uL (4.30-5.90); RDW 12.4 % (11.5-15.5); WBC 10.6 k/uL (3.8-10.6)
--- NOTE | 2021-03-29 20:19 | XR ---
EXAMINATION TYPE: XR chest 2V DATE OF EXAM: 03/29/2021 COMPARISON: NONE HISTORY: Weakness TECHNIQUE: 2 views FINDINGS: Heart and mediastinum are normal. Lungs are clear of infiltrate. There is no heart failure. There are no hilar masses. Costophrenic angles are clear. Bony thorax is intact. IMPRESSION: No active cardiopulmonary disease. Normal heart.
[2021-03-29 20:22] LABS: Partial Thromboplastin Time 24.3 sec (22.0-30.0); Prothrombin Time 10.3 sec (9.0-12.0)
[2021-03-29 20:38] LABS: ALT 46 U/L (4-49); AST 35 U/L (17-59); African American GFR (CKD) >90 (>60 ml/min/1.73 sqM); Albumin 4.5 g/dL (3.5-5.0); Alkaline Phosphatase 83 U/L (38-126); Anion Gap 10 mmol/L; Blood Urea Nitrogen 14 mg/dL (9-20); Calcium 9.3 mg/dL (8.4-10.2); Carbon Dioxide 22 mmol/L (22-30); Chloride 107 mmol/L (98-107); Glucose 96 mg/dL (74-99); Non-African American GFR(CKD) >90 (>60 ml/min/1.73 sqM); Potassium 3.8 mmol/L (3.5-5.1); Sodium 139 mmol/L (137-145); Total Bilirubin 0.8 mg/dL (0.2-1.3); Total Protein 7.2 g/dL (6.3-8.2)
[2021-03-29 23:44] VITALS: TEMP 98.7
[2021-03-30] MEDS ORDERED: HYDROmorphone 1 MG/ML 1 ML SYRINGE IVP STA (00:01)
[2021-03-30] MEDS ORDERED: diphenhydrAMINE 50 MG/ML 1 ML VIAL IVP STA (00:01)
[2021-03-30] MEDS ORDERED: CAFFEINE-SODIUM BENZOATE 1,000 MG in SODIUM CHLORIDE 0.9% 1,000 ML IVPB ONE (00:01)
[2021-03-30] MEDS ORDERED: KETOROLAC 15 MG/ML 1 ML VIAL IVP STA (00:01)
[2021-03-30] MEDS ORDERED: DEXAMETHASONE SOD PHOSPHATE 10 MG/ML 1 ML VIAL IVP STA (00:01)
[2021-03-30] MEDS ORDERED: PROCHLORPERAZINE INJ 10 MG/2 ML VIAL IVP STA (00:02)
[2021-03-30] MEDS ORDERED: ACETAMINOPHEN TAB 500 MG TAB PO STA (00:02)
--- NOTE | 2021-03-30 00:02 | ED ---
Headache HPI - General Chief Complaint: Weakness Stated Complaint: tingling back/legs post mylogram 03/27/21 Time Seen by Provider: 03/29/21 23:39 Source: RN notes reviewed, old records reviewed Mode of arrival: ambulatory Limitations: no limitations - History of Present Illness Initial Comments: This is a 45-year-old male to the emergency department today. Patient Dese for evaluation regarding 2 different complaints both chronic back pain worse than n ormal as well as significant headache. Headache related to recent lumbar puncture. Patient little puncture 3 days ago. No recent traumas no other complaints MD Complaint: headache (She does have post-LP headache), other (Acute on chronic back pain) -: days(s) Onset Description: gradual Location: right, left, frontal Severity: severe Severity scale (1-10): 10 Quality: aching, throbbing, pulsatile, constant Consistency: constant Improves With: nothing Worsens With: sitting/standing Context: recent spinal/epidural procedure Associated Symptoms: sensitivity to sound Treatments Prior to Arrival: prescription analgesic - Related Data Home Medications Medication Instructions Recorded Confirmed FLUoxetine HCL [PROzac] 80 mg PO DAILY 01/15/20 03/27/21 Chlorthalidone [Hygroton] 12.5 mg PO DAILY 03/03/21 03/27/21 HYDROcodone/APAP 5-325MG [[place] 1 tab PO BID 03/03/21 03/27/21 5-325] Losartan [Cozaar] 50 mg PO DAILY 03/03/21 03/27/21 Multivitamins, Thera [Multivitamin 1 tab PO DAILY 03/03/21 03/27/21 (formulary)] Omeprazole 20 mg PO DAILY 03/03/21 03/27/21 Prazosin [Minipress] 1 mg PO DAILY 03/03/21 03/27/21 Propranolol [Inderal] 10 mg PO BID 03/03/21 03/27/21 Tamsulosin [Flomax] 0.4 mg PO DAILY 03/03/21 03/27/21 traZODone HCL 50 mg PO HS 03/03/21 03/27/21 Allergies Allergy/AdvReac Type Severity Reaction Status Date / Time cat dander Allergy Unknown Verified 03/29/21 19:14 Review of Systems ROS Statement: Those systems with pertinent positive or pertinent negative responses have been documented in the HPI. ROS Other: All systems not noted in ROS Statement are negative. Past Medical History Past Medical History: GERD/Reflux, Hypertension, Musculoskeletal Disorder Additional Past Medical History / Comment(s): kidney stones History of Any Multi-Drug Resistant Organisms: None Reported Past Surgical History: Back Surgery, Joint Replacement, Orthopedic Surgery Additional Past Surgical History / Comment(s): multiple back surgeries, right hip surgery, several kidney stone removals, left shoulder surgery, finger surgery-reattached was cut while in the [employer] Past Anesthesia/Blood Transfusion Reactions: No Reported Reaction Past Psychological History: Anxiety, PTSD Smoking Status: Former smoker Past Alcohol Use History: None Reported Past Drug Use History: Marijuana - Past Family History Mother Family Medical History: No Reported History Father Family Medical History: No Reported History General Exam Limitations: no limitations General appearance: alert, in no apparent distress Head exam: Present: atraumatic, normocephalic, normal inspection Eye exam: Present: normal appearance, PERRL, EOMI. Absent: scleral icterus, conjunctival injection, periorbital swelling ENT exam: Present: normal exam, mucous membranes moist Neck exam: Present: normal inspection. Absent: tenderness, meningismus, lymphadenopathy Respiratory exam: Present: normal lung sounds bilaterally. Absent: respiratory distress, wheezes, rales, rhonchi, stridor Cardiovascular Exam: Present: regular rate, normal rhythm, normal heart sounds. Absent: systolic murmur, diastolic murmur, rubs, gallop, clicks GI/Abdominal exam: Present: soft, normal bowel sounds. Absent: distended, tenderness, guarding, rebound, rigid Extremities exam: Present: normal inspection, full ROM, normal capillary refill. Absent: tenderness, pedal edema, joint swelling, calf tenderness Back exam: Present: normal inspection Neurological exam: Present: alert, oriented X3, CN II-XII intact Psychiatric exam: Present: normal affect, normal mood Skin exam: Present: warm, dry, intact, normal color. Absent: rash Course Vital Signs 03/29/21 03/29/21 03/30/21 19:11 23:42 00:46 Temperature 100.0 F H 98.7 F Pulse Rate 82 76 Respiratory 18 16 Rate Blood Pressure 150/92 167/77 O2 Sat by Pulse 97 97 Oximetry - Reevaluation(s) Reevaluation #1: 03/30/21 01:33 Medical record is reviewed Reevaluation #2: 03/30/21 01:33 Patient symptoms are improved Reevaluation #3: 03/30/21 01:33 Patient informed of results and questions answered Medical Decision Making - Medical Decision Making 45male with acute on chronic back pain and post LP headache. Symptoms resolved here in the ER patient can be discharged home - Lab Data Result diagrams: 03/29/21 20:05 03/29/21 20:05 Lab Results 03/29/21 03/29/21 03/29/21 Range/Units 20:05 20:05 20:05 WBC 10.6 (3.8-10.6) k/uL RBC 4.19 L (4.30-5.90) m/uL Hgb 13.5 (13.0-17.5) gm/dL Hct 39.1 (39.0-53.0) % MCV 93.3 (80.0-100.0) fL MCH 32.1 (25.0-35.0) pg MCHC 34.4 (31.0-37.0) g/dL RDW 12.4 (11.5-15.5) % Plt Count 390 (150-450) k/uL MPV 7.2 Neutrophils % 55 % Lymphocytes % 34 % Monocytes % 5 % Eosinophils % 3 % Basophils % 1 % Neutrophils # 5.8 (1.3-7.7) k/uL Lymphocytes # 3.6 (1.0-4.8) k/uL Monocytes # 0.5 (0-1.0) k/uL Eosinophils # 0.3 (0-0.7) k/uL Basophils # 0.1 (0-0.2) k/uL PT 10.3 (9.0-12.0) sec INR 1.0 (<1.2) APTT 24.3 (22.0-30.0) sec Sodium 139 (137-145) mmol/L Potassium 3.8 (3.5-5.1) mmol/L Chloride 107 (98-107) mmol/L Carbon Dioxide 22 (22-30) mmol/L Anion Gap 10 mmol/L BUN 14 (9-20) mg/dL Creatinine 0.83 (0.66-1.25) mg/dL Est GFR (CKD-EPI)AfAm >90 (>60 ml/min/1.73 sqM) Est GFR (CKD-EPI)NonAf >90 (>60 ml/min/1.73 sqM) Glucose 96 (74-99) mg/dL Plasma Lactic Acid Favian (0.7-2.0) mmol/L Calcium 9.3 (8.4-10.2) mg/dL Total Bilirubin 0.8 (0.2-1.3) mg/dL AST 35 (17-59) U/L ALT 46 (4-49) U/L Alkaline Phosphatase 83 (38-126) U/L Troponin I (0.000-0.034) ng/mL Total Protein 7.2 (6.3-8.2) g/dL Albumin 4.5 (3.5-5.0) g/dL Urine Color Urine Appearance (Clear) Urine pH (5.0-8.0) Ur Specific [place] (1.001-1.035) Urine Protein (Negative) Urine Glucose (UA) (Negative) Urine Ketones (Negative) Urine Blood (Negative) Urine Nitrite (Negative) Urine Bilirubin (Negative) Urine Urobilinogen (<2.0) mg/dL Ur Leukocyte Esterase (Negative) 03/29/21 03/29/21 03/29/21 Range/Units 20:05 20:05 23:30 WBC (3.8-10.6) k/uL RBC (4.30-5.90) m/uL Hgb (13.0-17.5) gm/dL Hct (39.0-53.0) % MCV (80.0-100.0) fL MCH (25.0-35.0) pg MCHC (31.0-37.0) g/dL RDW (11.5-15.5) % Plt Count (150-450) k/uL MPV Neutrophils % % Lymphocytes % % Monocytes % % Eosinophils % % Basophils % % Neutrophils # (1.3-7.7) k/uL Lymphocytes # (1.0-4.8) k/uL Monocytes # (0-1.0) k/uL Eosinophils # (0-0.7) k/uL Basophils # (0-0.2) k/uL PT (9.0-12.0) sec INR (<1.2) APTT (22.0-30.0) sec Sodium (137-145) mmol/L Potassium (3.5-5.1) mmol/L Chloride (98-107) mmol/L Carbon Dioxide (22-30) mmol/L Anion Gap mmol/L BUN (9-20) mg/dL Creatinine (0.66-1.25) mg/dL Est GFR (CKD-EPI)AfAm (>60 ml/min/1.73 sqM) Est GFR (CKD-EPI)NonAf (>60 ml/min/1.73 sqM) Glucose (74-99) mg/dL Plasma Lactic Acid Favian 1.3 (0.7-2.0) mmol/L Calcium (8.4-10.2) mg/dL Total Bilirubin (0.2-1.3) mg/dL AST (17-59) U/L ALT (4-49) U/L Alkaline Phosphatase (38-126) U/L Troponin I <0.012 (0.000-0.034) ng/mL Total Protein (6.3-8.2) g/dL Albumin (3.5-5.0) g/dL Urine Color Yellow Urine Appearance Clear (Clear) Urine pH 5.5 (5.0-8.0) Ur Specific [place] 1.020 (1.001-1.035) Urine Protein Negative (Negative) Urine Glucose (UA) Negative (Negative) Urine Ketones Negative (Negative) Urine Blood Negative (Negative) Urine Nitrite Negative (Negative) Urine Bilirubin Negative (Negative) Urine Urobilinogen <2.0 (<2.0) mg/dL Ur Leukocyte Esterase Negative (Negative) - Radiology Data Radiology results: report reviewed (Chest x-rays negative for acute disease), image reviewed Disposition Clinical Impression: Post lumbar puncture headache, Chronic back pain Disposition: HOME SELF-CARE Condition: Good Instructions (If sedation given, give patient instructions): Lumbar Puncture (ED), Acute Headache (ED), Chronic Back Pain (DC) Is patient prescribed a controlled substance at d/c from ED?: No Referrals: Gabriel Kern MD [Primary Care Provider] - 1-2 days
[2021-03-30 00:18] LABS: Appearance,Urine Clear (Clear); Bilirubin,Urine Negative (Negative); Blood,Urine Negative (Negative); Color,Urine Yellow; Glucose,Urine (UA) Negative (Negative); Ketones,Urine Negative (Negative); Leukocyte Esterase,Urine Negative (Negative); Nitrite,Urine Negative (Negative); PH, Urine 5.5 (5.0-8.0); Protein,Urine Negative (Negative); Urobilinogen,Urine <2.0 mg/dL (<2.0)
[2021-03-30 00:47] VITALS: RESP 16
[2021-03-30 02:20] VITALS: BP 142/77; PULSE 71
== END 2021-03-30 02:24 | disposition home or self-care (01) ==
LOC: EC 18:07
DX: R51.9 Headache, unspecified (principal); G97.1 Other reaction to spinal and lumbar puncture; M54.9 Dorsalgia, unspecified; G89.29 Other chronic pain; K21.9 Gastro-esophageal reflux disease without esophagitis; I10 Essential (primary) hypertension; F41.9 Anxiety disorder, unspecified; F43.12 Post-traumatic stress disorder, chronic; F12.90 Cannabis use, unspecified, uncomplicated; Z87.891 Personal history of nicotine dependence; Z87.442 Personal history of urinary calculi
CPT/HCPCS: 99284; 96365; 96375 ×5; 36415; 80053; 83605; 84484; 85025; 85610; 85730; 81003; 71046; J1200; J0780; J1100; J1170; J1885

== ENCOUNTER 2021-04-02 18:59 | Emergency (ER) | payer OTHER ==
[2021-04-02 19:08] VITALS: RESP 18
[2021-04-02] MEDS ORDERED: MORPHINE SULFATE 4 MG/ML SYRINGE IV STA (19:26)
[2021-04-02] MEDS ORDERED: KETOROLAC 15 MG/ML 1 ML VIAL IVP STA (19:26)
[2021-04-02] MEDS ORDERED: SODIUM CHLORIDE 0.9% 500 ML 500 ML IV STA (19:26)
[2021-04-02 19:49] LABS: Appearance,Urine Clear (Clear); Basophils # (A) 0.1 k/uL (0-0.2); Basophils % (A) 1 %; Bilirubin,Urine Negative (Negative); Blood,Urine Negative (Negative); Color,Urine Colorless; Eosinophils # (A) 0.4 k/uL (0-0.7); Eosinophils % (A) 3 %; Glucose,Urine (UA) Negative (Negative); HCT 41.2 % (39.0-53.0); HGB 14.5 gm/dL (13.0-17.5); Ketones,Urine Negative (Negative); Leukocyte Esterase,Urine Negative (Negative); Lymphocytes # (A) 4.5 k/uL (1.0-4.8); Lymphocytes % (A) 34 %; MCH 32.6 pg (25.0-35.0); MCHC 35.1 g/dL (31.0-37.0); Mean Platelet Volume 7.7; Monocytes # (A) 0.9 k/uL (0-1.0); Monocytes % (A) 7 %; Neutrophils # (A) 7.4 k/uL (1.3-7.7); Neutrophils % (A) 55 %; Nitrite,Urine Negative (Negative); PH, Urine 5.5 (5.0-8.0); Platelet Count 397 k/uL (150-450); Protein,Urine Negative (Negative); RBC 4.43 m/uL (4.30-5.90); RDW 12.4 % (11.5-15.5); Specific Gravity,Urine 1.003 (1.001-1.035); Urobilinogen,Urine <2.0 mg/dL (<2.0); WBC 13.4 k/uL (3.8-10.6)
[2021-04-02 20:00] LABS: ALT 47 U/L (4-49); AST 62 U/L (17-59); African American GFR (CKD) >90 (>60 ml/min/1.73 sqM); Albumin 4.8 g/dL (3.5-5.0); Alkaline Phosphatase 89 U/L (38-126); Amylase 46 U/L (30-110); Anion Gap 13 mmol/L; Blood Urea Nitrogen 15 mg/dL (9-20); Calcium 9.4 mg/dL (8.4-10.2); Carbon Dioxide 20 mmol/L (22-30); Chloride 99 mmol/L (98-107); Glucose 95 mg/dL (74-99); Lipase 101 U/L (23-300); Non-African American GFR(CKD) >90 (>60 ml/min/1.73 sqM); Sodium 132 mmol/L (137-145); Total Bilirubin 1.7 mg/dL (0.2-1.3); Total Protein 8.4 g/dL (6.3-8.2)
--- NOTE | 2021-04-02 20:01 | ED ---
General Adult HPI - General Chief complaint: Abdominal Pain Stated complaint: Nausea,Bloody Urine,Lt Side Pain Time Seen by Provider: 04/02/21 19:14 Source: patient, RN notes reviewed, old records reviewed Mode of arrival: ambulatory Limitations: no limitations - History of Present Illness Initial comments: 45-year-old male presenting with left flank pain and left lower abdominal pain. Patient has history of kidney stones and believes this is the cause of his symptoms. He states the pain has been worsening. He denies vomiting but has had some nausea. He does also report intermittent hematuria. He denies fever. - Related Data Home Medications Medication Instructions Recorded Confirmed FLUoxetine HCL [PROzac] 80 mg PO DAILY 01/15/20 04/02/21 Chlorthalidone [Hygroton] 12.5 mg PO DAILY 03/03/21 04/02/21 HYDROcodone/APAP 5-325MG [[place] 1 tab PO BID 03/03/21 04/02/21 5-325] Losartan [Cozaar] 50 mg PO DAILY 03/03/21 04/02/21 Omeprazole 20 mg PO DAILY 03/03/21 04/02/21 Prazosin [Minipress] 1 mg PO HS 03/03/21 04/02/21 Propranolol [Inderal] 10 mg PO BID PRN 03/03/21 04/02/21 traZODone HCL 50 mg PO HS 03/03/21 04/02/21 5Hydroxytryptophan(Oxitriptan) 200 mg PO DAILY 04/02/21 04/02/21 [5-Htp] Alpha Lipoic Acid 600 mg PO DAILY 04/02/21 04/02/21 Ascorbic Acid [Vitamin C] 2,000 mg PO DAILY 04/02/21 04/02/21 Atorvastatin [Lipitor] 20 mg PO HS 04/02/21 04/02/21 Calcium Carbonate [Calcium] 1,200 mg PO DAILY 04/02/21 04/02/21 Cholecalciferol [Vitamin D3 (25 25 mcg PO DAILY 04/02/21 04/02/21 Mcg = 1000 Iu)] S-Adenosylmethionine Sul Tosyl 400 mg PO DAILY 04/02/21 04/02/21 [Rashaun-E] Turmeric Root Extract [Turmeric] 500 mg PO DAILY 04/02/21 04/02/21 Previous Rx's Medication Instructions Recorded HYDROcodone/APAP 5-325MG [[place] 1 tab PO Q6HR PRN #12 tab 04/02/21 5-325] Allergies Allergy/AdvReac Type Severity Reaction Status Date / Time cat dander Allergy Unknown Verified 04/02/21 19:42 Review of Systems ROS Statement: Those systems with pertinent positive or pertinent negative responses have been documented in the HPI. ROS Other: All systems not noted in ROS Statement are negative. Past Medical History Past Medical History: GERD/Reflux, Hypertension, Musculoskeletal Disorder Additional Past Medical History / Comment(s): kidney stones History of Any Multi-Drug Resistant Organisms: None Reported Past Surgical History: Back Surgery, Joint Replacement, Orthopedic Surgery Additional Past Surgical History / Comment(s): multiple back surgeries, right hip surgery, several kidney stone removals, left shoulder surgery, finger surgery-reattached was cut while in the [employer] Past Anesthesia/Blood Transfusion Reactions: No Reported Reaction Past Psychological History: Anxiety, PTSD Smoking Status: Former smoker Past Alcohol Use History: None Reported Past Drug Use History: Marijuana - Past Family History Mother Family Medical History: No Reported History Father Family Medical History: No Reported History General Exam Limitations: no limitations General appearance: alert, in no apparent distress Head exam: Present: atraumatic, normocephalic Eye exam: Present: normal appearance, PERRL ENT exam: Present: normal exam Neck exam: Present: normal inspection. Absent: tenderness, meningismus Respiratory exam: Present: normal lung sounds bilaterally. Absent: respiratory distress, wheezes Cardiovascular Exam: Present: regular rate, normal rhythm GI/Abdominal exam: Present: soft, distended, tenderness. Absent: guarding, rebound Extremities exam: Present: normal inspection, normal capillary refill. Absent: pedal edema Neurological exam: Present: alert, oriented X3, CN II-XII intact. Absent: motor sensory deficit Psychiatric exam: Present: normal affect, normal mood Skin exam: Present: warm, dry, intact. Absent: cyanosis, diaphoretic Course Vital Signs 04/02/21 19:04 Temperature 98.3 F Pulse Rate 94 Respiratory 18 Rate Blood Pressure 106/102 O2 Sat by Pulse 98 Oximetry Medical Decision Making - Medical Decision Making 45-year-old male with left-sided abdominal pain, flank pain. History of kidney stones. Workup is initiated, mild leukocytosis 13.4. Patient has a urinalysis which is negative for infection, no significant blood. X-rays negative. CT the abdomen does show left-sided renal cyst and stones within the left kidney no obstructing stones or hydronephrosis. Patient feeling better on reevaluation. He will follow with his primary care physician and his urologist. - Lab Data Result diagrams: 04/02/21 19:33 04/02/21 19:33 Lab Results 04/02/21 04/02/21 04/02/21 Range/Units 19:33 19:33 19:33 WBC 13.4 H (3.8-10.6) k/uL RBC 4.43 (4.30-5.90) m/uL Hgb 14.5 (13.0-17.5) gm/dL Hct 41.2 (39.0-53.0) % MCV 93.0 (80.0-100.0) fL MCH 32.6 (25.0-35.0) pg MCHC 35.1 (31.0-37.0) g/dL RDW 12.4 (11.5-15.5) % Plt Count 397 (150-450) k/uL MPV 7.7 Neutrophils % 55 % Lymphocytes % 34 % Monocytes % 7 % Eosinophils % 3 % Basophils % 1 % Neutrophils # 7.4 (1.3-7.7) k/uL Lymphocytes # 4.5 (1.0-4.8) k/uL Monocytes # 0.9 (0-1.0) k/uL Eosinophils # 0.4 (0-0.7) k/uL Basophils # 0.1 (0-0.2) k/uL PT 9.9 (9.0-12.0) sec INR 0.9 (<1.2) APTT 21.8 L (22.0-30.0) sec Sodium (137-145) mmol/L Potassium (3.5-5.1) mmol/L Chloride (98-107) mmol/L Carbon Dioxide (22-30) mmol/L Anion Gap mmol/L BUN (9-20) mg/dL Creatinine (0.66-1.25) mg/dL Est GFR (CKD-EPI)AfAm (>60 ml/min/1.73 sqM) Est GFR (CKD-EPI)NonAf (>60 ml/min/1.73 sqM) Glucose (74-99) mg/dL Plasma Lactic Acid Favian (0.7-2.0) mmol/L Calcium (8.4-10.2) mg/dL Total Bilirubin (0.2-1.3) mg/dL AST (17-59) U/L ALT (4-49) U/L Alkaline Phosphatase (38-126) U/L Total Protein (6.3-8.2) g/dL Albumin (3.5-5.0) g/dL Amylase (30-110) U/L Lipase (23-300) U/L Urine Color Colorless Urine Appearance Clear (Clear) Urine pH 5.5 (5.0-8.0) Ur Specific [place] 1.003 (1.001-1.035) Urine Protein Negative (Negative) Urine Glucose (UA) Negative (Negative) Urine Ketones Negative (Negative) Urine Blood Negative (Negative) Urine Nitrite Negative (Negative) Urine Bilirubin Negative (Negative) Urine Urobilinogen <2.0 (<2.0) mg/dL Ur Leukocyte Esterase Negative (Negative) 04/02/21 04/02/21 Range/Units 19:33 19:33 WBC (3.8-10.6) k/uL RBC (4.30-5.90) m/uL Hgb (13.0-17.5) gm/dL Hct (39.0-53.0) % MCV (80.0-100.0) fL MCH (25.0-35.0) pg MCHC (31.0-37.0) g/dL RDW (11.5-15.5) % Plt Count (150-450) k/uL MPV Neutrophils % % Lymphocytes % % Monocytes % % Eosinophils % % Basophils % % Neutrophils # (1.3-7.7) k/uL Lymphocytes # (1.0-4.8) k/uL Monocytes # (0-1.0) k/uL Eosinophils # (0-0.7) k/uL Basophils # (0-0.2) k/uL PT (9.0-12.0) sec INR (<1.2) APTT (22.0-30.0) sec Sodium 132 L (137-145) mmol/L Potassium 4.6 (3.5-5.1) mmol/L Chloride 99 (98-107) mmol/L Carbon Dioxide 20 L (22-30) mmol/L Anion Gap 13 mmol/L BUN 15 (9-20) mg/dL Creatinine 0.77 (0.66-1.25) mg/dL Est GFR (CKD-EPI)AfAm >90 (>60 ml/min/1.73 sqM) Est GFR (CKD-EPI)NonAf >90 (>60 ml/min/1.73 sqM) Glucose 95 (74-99) mg/dL Plasma Lactic Acid Favian 1.8 (0.7-2.0) mmol/L Calcium 9.4 (8.4-10.2) mg/dL Total Bilirubin 1.7 H (0.2-1.3) mg/dL AST 62 H (17-59) U/L ALT 47 (4-49) U/L Alkaline Phosphatase 89 (38-126) U/L Total Protein 8.4 H (6.3-8.2) g/dL Albumin 4.8 (3.5-5.0) g/dL Amylase 46 (30-110) U/L Lipase 101 (23-300) U/L Urine Color Urine Appearance (Clear) Urine pH (5.0-8.0) Ur Specific [place] (1.001-1.035) Urine Protein (Negative) Urine Glucose (UA) (Negative) Urine Ketones (Negative) Urine Blood (Negative) Urine Nitrite (Negative) Urine Bilirubin (Negative) Urine Urobilinogen (<2.0) mg/dL Ur Leukocyte Esterase (Negative) Disposition Clinical Impression: Flank pain Disposition: HOME SELF-CARE Condition: Fair Instructions (If sedation given, give patient instructions): Flank Pain (ED) Prescriptions: HYDROcodone/APAP 5-325MG [[place] 5-325] 1 tab PO Q6HR PRN #12 tab PRN Reason: Pain Is patient prescribed a controlled substance at d/c from ED?: No Referrals: Gabriel Kern MD [Primary Care Provider] - 1-2 days Time of Disposition: 21:12
[2021-04-02 20:02] LABS: Potassium 4.6 mmol/L (3.5-5.1)
--- NOTE | 2021-04-02 20:13 | XR ---
EXAMINATION TYPE: XR KUB DATE OF EXAM: 04/02/2021 8:02 PM CLINICAL HISTORY: Pain, nausea, hematuria TECHNIQUE: 2 upright views COMPARISON: None. FINDINGS: Scattered gas is seen in non-distended small bowel loops. Gas and fecal material is seen in non-distended colon. There is no pneumoperitoneum or pneumatosis. Projecting over the lower pole left kidney is a 5 mm calcification in and adjacent 3 mm calcification . There are no definite calcifications over the expected course of the ureters. There is no visceromegaly. Visualized lung bases and pleural spaces are unremarkable. The osseous structures are intact. IMPRESSION: No definite acute process.
[2021-04-02 20:22] LABS: INR 0.9 (<1.2); Partial Thromboplastin Time 21.8 sec (22.0-30.0); Prothrombin Time 9.9 sec (9.0-12.0)
--- NOTE | 2021-04-02 20:51 | CT ---
EXAMINATION TYPE: CT abdomen pelvis wo con DATE OF EXAM: 04/02/2021 COMPARISON: Radiographs 04/02/2021 HISTORY: Lt sided flank pain CT DLP: 1830 mGycm Automated exposure control for dose reduction was used. TECHNIQUE: Helical acquisition of images was performed from the lung bases through the pelvis. FINDINGS: LUNG BASES: No significant abnormality is appreciated. LIVER/GB: No significant abnormality is appreciated. PANCREAS: No significant abnormality is seen. SPLEEN: No significant abnormality is seen. ADRENALS: No significant abnormality is seen. KIDNEYS: There is no hydronephrosis or hydroureter. There are nonobstructing calcifications in the lo wer pole collecting system of the left kidney. Bilateral renal cysts are noted, much 4larger in diame ter on the left. FREE AIR: No free air is visualized RETROPERITONEAL ADENOPATHY: None visualized REPRODUCTIVE ORGANS: No significant abnormality is seen URINARY BLADDER: No significant abnormality is seen. PELVIC ADENOPATHY: None visualized. OSSEOUS STRUCTURES: No significant abnormality is seen. BOWEL: No significant abnormality is seen. IMPRESSION: NO ACUTE PROCESS.
[2021-04-02 21:20] VITALS: BP 129/79; PULSE 75; TEMP 98
== END 2021-04-02 21:20 | disposition home or self-care (01) ==
LOC: EC 18:59
DX: R10.32 Left lower quadrant pain (principal); K21.9 Gastro-esophageal reflux disease without esophagitis; I10 Essential (primary) hypertension; F41.9 Anxiety disorder, unspecified; F43.12 Post-traumatic stress disorder, chronic; F12.90 Cannabis use, unspecified, uncomplicated; Z87.891 Personal history of nicotine dependence; Z87.442 Personal history of urinary calculi
CPT/HCPCS: 99284; 96374; 96375; 96361; 36415; 80053; 82150; 83605; 83690; 85025; 85610; 85730; 81003; 74018; 74176; J2270; J1885

== ENCOUNTER → 2021-05-19 | Day surgery (SDC) | payer OTHER ==
[2021-05-18 15:26] VITALS: BMI 37.6
== END ==
LOC: ORPAIN 07:29
DX: M46.1 Sacroiliitis, not elsewhere classified (principal); Z53.9 Procedure and treatment not carried out, unspecified reason

== ENCOUNTER 2021-06-30 07:22 | Day surgery (SDC) | payer OTHER ==
[2021-06-29 11:41] VITALS: BMI 37.6
[~2021-06-30 07:22] MED LIST changes: +LACTATED RINGERS 1,000 ML IV SCH; -ceFAZolin 3 GM in SODIUM CHLORIDE 0.9% 100 ML IVPB ONE
--- NOTE | 2021-06-30 07:59 | P.PCN ---
Date of Procedure: 06/30/21 Description of Procedure: Procedure: Sacroiliac joint injection left Preoperative diagnosis: Sacroiliitis Postoperative diagnosis: Sacroiliitis Imaging: Fluoroscopy was used, images where saved to the medical record Complications: none Anesthesia: 1% lidocaine 5cc Versed and fentanyl Description of the procedure: procedure risk and benefits discussed with the patient, including but not limited, risk of infection and bleeding, and allergic reaction to the medication and incomplete pain relief. Patient agreed and sign ed consent. Patient was taken to the room and placed in a prone position. Chlorhexidine was used to cleanse the skin. Under sterile conditions patient skin was anesthetized 1% lidocaine. Subcutan eous tissues were also anesthetized with a total 5 mL of 1% lidocaine. After that, a 22-gauge spinal needle was advanced through the anesthetized location under fluoroscopic guidance. Needle was advanced into the inferior portion of the sacroiliac joint. IV contrast was used to confirm spread within the joint. After adequate spread was achieved, 2.5 ML's of 0.5% ropivacaine with 40 mg of depomedrol was injected into the joint (steroid split between both sides if bilateral). Patient tolerated the procedure well. Sent to the recovery room in stable condition. Patient will follow up as directed in 4 weeks in the clinic for follow-up
[2021-06-30 08:04] VITALS: TEMP 98.4
[2021-06-30] MEDS ORDERED: MIDAZOLAM 2 MG/2 ML VIAL ONE (08:07)
[2021-06-30] MEDS ORDERED: fentaNYL (PF) 50 MCG/ML 2 ML AMP ONE (08:07)
[2021-06-30] MEDS ORDERED: methylPREDNISolone ACETATE 40 MG/ML 1 ML VIAL ONE (08:07)
[2021-06-30] MEDS ORDERED: ROPIVACAINE 5MG/ML 20ML VIAL ONE (08:07)
[2021-06-30] MEDS ORDERED: IOPAMIDOL M200 10 ML VIAL ONE (08:07)
[2021-06-30] MEDS ORDERED: IV FLUID CONTINUATION 800 ML IV ONE (08:19)
--- NOTE | 2021-06-30 08:25 | FL ---
EXAMINATION TYPE: FL guided pain mgmt statistic DATE OF EXAM: 06/30/2021 HISTORY: Fluoroscopy time 1 seconds of fluoroscopy provided. IMPRESSION: 1. Fluoroscopy time.
[2021-06-30 08:26] VITALS: RESP 20
[2021-06-30 08:38] VITALS: BP 108/70; PULSE 76
== END 2021-06-30 08:52 ==
LOC: ORPAIN 07:22
PROVIDERS: ATTEND Hospitalist
DX: M46.1 Sacroiliitis, not elsewhere classified (principal)
CPT/HCPCS: 27096; J2250; J1030; J3010; Q9966; J2795

== ENCOUNTER → 2021-07-31 | Outpatient (CLI) | payer OTHER ==
[2021-07-31 16:08] LABS: Basophils # (A) 0.01 X 10*3/uL (0.00-0.10); Basophils % (A) 0.3 %; Eosinophils # (A) 0.07 X 10*3/uL (0.04-0.35); Eosinophils % (A) 1.9 %; HCT 39.3 % (39.6-50.0); HGB 13.6 g/dL (13.0-17.0); Immature Grans, Automated 0.6 %; Lymphocytes # (A) 1.92 X 10*3/uL (0.90-5.00); Lymphocytes % (A) 53.3 %; MCH 31.3 pg (27.0-32.0); MCHC 34.6 g/dL (32.0-37.0); MCV 90.6 fL (80.0-97.0); Mean Platelet Volume 10.1 fL (9.5-12.2); Monocytes # (A) 0.34 X 10*3/uL (0.20-1.00); Monocytes % (A) 9.4 %; NRBC Per 100 WBC 0 /100 WBCS (0.0-0.0); Neutrophils # (A) 1.24 X 10*3/uL (1.80-7.70); Neutrophils % (A) 34.5 %; Platelet Count 302 X 10*3/uL (140-440); RBC 4.34 X 10*6/uL (4.40-5.60); RDW 11.9 % (11.5-14.5)
[2021-07-31 18:56] LABS: African American GFR (CKD) 124.2 (60.0-200.0); BUN/Creat Ratio 22.13 Ratio (12.00-20.00); Blood Urea Nitrogen 17.7 mg/dL (9.0-27.0); Calcium 9.1 mg/dL (8.7-10.3); Non-African American GFR(CKD) 107.1 (60.0-200.0); Potassium 3.2 mmol/L (3.5-5.5)
== END | disposition home or self-care (01) ==
LOC: LABPAT 10:13
PROVIDERS: ATTEND Urology
DX: Z01.812 Encounter for preprocedural laboratory examination (principal); N20.0 Calculus of kidney
CPT/HCPCS: 36415; 80048; 85025

== ENCOUNTER 2021-08-06 09:00 | Day surgery (SDC) | payer OTHER ==
--- NOTE | 2021-08-03 08:18 | P.GSHP ---
History of Present Illness H&P Date: 08/03/21 Chief Complaint: Left flank pain The patient is a 45-year-old white male with a history of calcium oxalate kidney stones. He has undergone ESWL on 1 occasion, and ureteroscopy on over 12 occasions. 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 CT scan in March 2021 revealed left lower pole renal calculi, the largest being 6 x 9 mm located within a lower pole calyx. - Constitutional Constitutional: Denies chills, Denies fever - Gastrointestinal Gastrointestinal: Denies nausea, Denies vomiting - Genitourinary (Male) Genitourinary: Reports flank pain, Reports hematuria, Reports kidney stones, Denies dysuria Past Medical History Past Medical History: GERD/Reflux, Hypertension, Musculoskeletal Disorder Additional Past Medical History / Comment(s): kidney stones History of Any Multi-Drug Resistant Organisms: None Reported Past Surgical History: Back Surgery, Joint Replacement, Orthopedic Surgery Additional Past Surgical History / Comment(s): multiple back surgeries, right hip surgery, several kidney stone removals, left shoulder surgery, finger surgery-reattached was cut while in the [employer] Past Anesthesia/Blood Transfusion Reactions: No Reported Reaction Additional Drug Use History / Comment(s): smoked for approximately 25 years, quit smoking in February of 2020, daily marijuana use - Past Family History Mother Family Medical History: No Reported History Father Family Medical History: No Reported History Medications and Allergies Home Medications Medication Instructions Recorded Confirmed Type FLUoxetine HCL [PROzac] 80 mg PO DAILY 01/15/20 06/29/21 History Chlorthalidone [Hygroton] 12.5 mg PO DAILY 03/03/21 06/29/21 History Losartan [Cozaar] 50 mg PO DAILY 03/03/21 06/29/21 History Omeprazole 20 mg PO DAILY 03/03/21 06/29/21 History Prazosin [Minipress] 1 mg PO HS 03/03/21 06/29/21 History Propranolol [Inderal] 10 mg PO BID PRN 03/03/21 06/29/21 History traZODone HCL 50 mg PO HS 03/03/21 06/29/21 History 5Hydroxytryptophan(Oxitriptan) 200 mg PO DAILY 04/02/21 06/29/21 History [5-Htp] Alpha Lipoic Acid 600 mg PO DAILY 04/02/21 06/29/21 History Ascorbic Acid [Vitamin C] 2,000 mg PO DAILY 04/02/21 06/29/21 History Atorvastatin [Lipitor] 20 mg PO HS 04/02/21 06/29/21 History Calcium Carbonate [Calcium] 1,200 mg PO DAILY 04/02/21 06/29/21 History Cholecalciferol [Vitamin D3 (25 25 mcg PO DAILY 04/02/21 06/29/21 History Mcg = 1000 Iu)] S-Adenosylmethionine Sul Tosyl 400 mg PO DAILY 04/02/21 06/29/21 History [Rashaun-E] Turmeric Root Extract [Turmeric] 500 mg PO DAILY 04/02/21 06/29/21 History HYDROcodone/APAP 7.5-325MG [[place] 1 tab PO BID 05/18/21 06/30/21 History 7.5-325] Allergies Allergy/AdvReac Type Severity Reaction Status Date / Time cat dander Allergy Unknown Verified 06/29/21 11:25 DUST MITES AdvReac Unknown Uncoded 06/30/21 07:55 Surgical - Exam - General well developed, well nourished, no distress - Neck no masses, trachea midline - Respiratory normal respiratory effort - Abdomen Abdomen: soft, non tender, no guarding, no rigid, no rebound - Genitourinary normal penis with no external lesions, testicles non-tender - Psychiatric oriented to time, oriented to person, oriented to place, speech is normal, memory intact Results - Imaging CT scan - abdomen: report reviewed Assessment and Plan (1) Calculus of kidney Status: Acute Code(s): N20.0 - CALCULUS OF KIDNEY SNOMED Code(s): 47015745 Plan: Cystoscopy, left retrograde pyelogram, left ureteroscopy with Holmium laser lithotripsy and possible stone basketing, left ureteral stent insertion. The procedure then reviewed in detail with the patient. He is aware of potential risks, which include anesthesia, bleeding, infection, ureteral injury, and inability to successfully remove all calculi.
[2021-08-04 11:31] VITALS: BMI 36.2
[~2021-08-06 09:00] MED LIST changes: +DEXAMETHASONE SOD PHOSPHATE 4 MG/ML 1 ML VIAL IV ONE; -LACTATED RINGERS 1,000 ML IV SCH; +ONDANSETRON 4 MG/2 ML VIAL IVP ONE
--- NOTE | 2021-08-06 09:16 | XR ---
EXAMINATION TYPE: XR KUB DATE OF EXAM: 08/06/2021 COMPARISON: NONE HISTORY: Preop TECHNIQUE: One view abdominal series FINDINGS: The osseous structures are intact. The bowel gas pattern is nonspecific. There are approximately 5 c alcifications overlying the left kidney with the largest measuring 8 mm overlying the lower pole. Postsurgical change right hip and lumbar spine with arthropathy left hip.. IMPRESSION: 1. Left nephrolithiasis.
[2021-08-06] MEDS: LACTATED RINGERS 1,000 ML IV SCH ×2 (09:47→13:02)
[2021-08-06] MEDS ORDERED: LIDOCAINE 2% INJ 20 MG/ML (2 ML VIAL) ONE (10:39)
[2021-08-06] MEDS ORDERED: fentaNYL (PF) 50 MCG/ML 2 ML AMP ONE (10:39)
[2021-08-06] MEDS ORDERED: HYDROmorphone (PF) 1 MG/ML ONE (10:39)
[2021-08-06] MEDS ORDERED: PROPOFOL 10 MG/ML 20 ML VIAL IV ONE (10:39)
[2021-08-06] MEDS ORDERED: SUCCINYLCHOLINE CHLORIDE 100 MG/5 ML SYR IV ONE (10:39)
[2021-08-06] MEDS ORDERED: GLYCOPYRROLATE 0.2 MG/ML 2 ML VIAL ONE (10:39)
[2021-08-06] MEDS ORDERED: NEOSTIGMINE 1 MG/ML 10 ML VIAL ONE (10:39)
[2021-08-06] MEDS ORDERED: ROCURONIUM 10 MG/ML (5 ML VIAL) IV ONE (10:39)
[2021-08-06] MEDS ORDERED: MIDAZOLAM 2 MG/2 ML VIAL ONE (10:39)
--- NOTE | 2021-08-06 12:42 | P.OP ---
Date of Procedure: 08/06/21 Preoperative Diagnosis: Left renal calculi Postoperative Diagnosis: Same Procedure(s) Performed: Cystoscopy, left ureteroscopy with Holmium laser lithotripsy and stone basketing, left ureteral stent insertion Anesthesia: DAPHNEY Surgeon: Sinan Brown Estimated Blood Loss (ml): 5 IV fluids (ml): 700 Pathology: none sent Condition: stable Disposition: PACU Indications for Procedure: The patient is a 45-year-old white male with a history of calcium oxalate kidney stones. He has undergone ESWL on 1 occasion, and ureteroscopy on over 12 occasions. 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 CT scan in March 2021 revealed left lower pole renal calculi, the largest being 6 x 9 mm located within a lower pole calyx. Operative Findings: Multiple left renal calculi, fragmented and basketed completely. Description of Procedure: The patient was taken to the operating room and placed in the dorsolithotomy position, with legs supported in Matt stirrups. The external genitalia was prepped and draped sterilely. The 30 lens was used to introduce the 21-Gib[place]tarian Rubio cystoscopic sheath through the urethra and into the bladder under direct vision. The prostatic urethra showed evidence of mild lateral lobe enlargement. The bladder was examined in its entirety. Both ureteral orifices were normal anatomic location and configuration, and clear urine effluxed from both. No tumors or foreign bodies were seen. A 0.038 inch Glidewire was passed through the cystoscope. The left ureteral orifice was cannulated, and the Glidewire was advanced up to the renal pelvis. The cystoscope was removed, and an 11/13- Gib[place]arian ureteral access catheter was passed over the wire, up to the proximal ureter. The flexible ureteroscope was then passed through the ureteral access catheter sheath, up to the left renal pelvis. Each calyx was examined. A calculus was identified within a mid pole calyx. The 200 micron Holmium laser probe was passed through the ureteroscope, and lithotripsy was performed. After fragmenting the calculus via dusting, 3 calculi were identified within a lower pole calyx. Individually, each one was basketed with a 1.9-Gibraltarian nitinol basket and relocated into an upper pole calyx, where lithotripsy was performed using a combination of dusting and fragmenting. All calculus fragments exceeding 1 mm in size were removed using the nitinol basket. Upon completion of the procedure, significant dust was seen within the kidney but there were no residual fragments of significance. The ureteroscope was removed. The Glidewire was passed through the ureteral access catheter sheath, which was removed. The Glidewire was backloaded into the cystoscope, which was passed into the bladder. A 26 cm, 4.8-Gibraltarian double-J ureteral stent was placed over the wire. Proper stent positioning was verified fluoroscopically and endoscopically. The bladder was emptied and the cystoscope removed. The string attached to the stent was taped to the penis using a Tegaderm dressing. The patient tolerated the procedure well and was taken to the recovery room in stable condition. JORGE LUIS DOUGHERTY Report: Procedure Acuity: Elective Stone Size and Location: Left lower pole calyx, 6 x 9 mm Ureteral Dilation: No Ureteral Access Sheath Used: Yes Stone Sent for Analysis: No All Stones/Fragments Were Removed with a Basket: Yes Complications: No Preoperative Antibiotics Given: Yes Stent Placed: Yes If Stent Placed, Was String Left Attached: Yes If Stent Placed, When is it to be Removed: 1 week Discharge Medications: None
--- NOTE | 2021-08-06 12:51 | FL ---
EXAMINATION TYPE: FL guidance operating room DATE OF EXAM: 08/06/2021 HISTORY: Fluoroscopy time 17 seconds of fluoroscopy provided. IMPRESSION: 1. Fluoroscopy time.
[2021-08-06] MEDS: HYDROmorphone 0.5 MG/0.5 ML SYRINGE IVP PRN ×6 (12:56→13:28)
[2021-08-06 12:59] VITALS: TEMP 96.9
[2021-08-06] MEDS ORDERED: KETOROLAC 15 MG/ML 1 ML VIAL IVP ONE (13:18)
[2021-08-06] MEDS ORDERED: MEPERIDINE 50 MG/ML SYRINGE IVP ONE (13:35)
[2021-08-06 13:37] VITALS: RESP 16
[2021-08-06 14:06] VITALS: BP 123/79; PULSE 82
== END 2021-08-06 14:19 | disposition home or self-care (01) ==
LOC: OR 09:00
PROVIDERS: ATTEND Urology
DX: N20.0 Calculus of kidney (principal); K21.9 Gastro-esophageal reflux disease without esophagitis; I10 Essential (primary) hypertension; Z98.890 Other specified postprocedural states; Z87.442 Personal history of urinary calculi; Z87.891 Personal history of nicotine dependence; Z79.899 Other long term (current) drug therapy; Z91.09 Other allergy status, other than to drugs and biological substances; E78.5 Hyperlipidemia, unspecified; G47.33 Obstructive sleep apnea (adult) (pediatric); Z87.820 Personal history of traumatic brain injury
CPT/HCPCS: 74018; 52356; C2625; C1769; J2250; J1100; J2710; J2175; J0690; J2405; J3010; J1170 ×2; J1885; J0330; J2704; J2001

== ENCOUNTER → 2021-09-02 | Outpatient (CLI) | payer OTHER ==
--- NOTE | 2021-09-02 15:48 | US ---
EXAMINATION TYPE: US kidneys/renal and bladder DATE OF EXAM: 09/02/2021 COMPARISON: CT abdomen and pelvis April 02, 2021 CLINICAL HISTORY: N20.0 CALCULUS OF KIDNEY. Hx of stones. Limited due to body habitus. EXAM MEASUREMENTS: Right Kidney: 11.8 x 6.9 x 6.5 cm Left Kidney: 12.6 x 5.6 x 5.2 cm Right Kidney: Cystic area 1.9 x 2.2 x 1.9 cm Left Kidney: Cystic area 4.1 x 3.2 x 3.9 cm Bladder: wnl Bilateral Jets seen: Yes There is no evidence for hydronephrosis at this point in time. Left-sided renal calculi on CT less we ll seen on ultrasound. Simple appearing thin-walled cysts in both kidneys are redemonstrated. The uri nary bladder is adequately distended. Bilateral ureteral jets are seen. IMPRESSION: No hydronephrosis noted bilaterally. Left-sided nephrolithiasis on CT left well-seen on u ltrasound.
== END | disposition home or self-care (01) ==
LOC: RADUSWWP 14:53
PROVIDERS: ATTEND Urology
DX: N20.0 Calculus of kidney (principal)
CPT/HCPCS: 76770

== ENCOUNTER → 2021-09-17 | Outpatient (CLI) | payer OTHER ==
--- NOTE | 2021-09-18 02:59 | MR ---
EXAMINATION TYPE: MR lumbar spine wo con DATE OF EXAM: 09/17/2021 COMPARISON: 01/29/2021 HISTORY: Low back pain since 2002 due to injury, pain radiates into left buttock and down right leg. History of surgery. Multiplanar multiecho imaging of lumbar spine with no contrast. The vertebra have normal alignment. There is disc space narrowing and decreased signal in the L5-S1 l evel. There is metal artifact from posterior fusion surgery at L5-S1. No compression fracture. No robert tral spinal stenosis. No evidence of focal bone destruction. There is no paraspinal mass. visualized sacroiliac joints appear intact. IMPRESSION: Previous surgery at L5-S1. No spinal stenosis. No fracture. No significant change compared to old exa m.
== END | disposition home or self-care (01) ==
LOC: RADMRIMAIN 16:13
PROVIDERS: ATTEND Orthopaedic Surgery
DX: M47.26 Other spondylosis with radiculopathy, lumbar region (principal); M48.061 Spinal stenosis, lumbar region without neurogenic claudication; M99.73 Connective tissue and disc stenosis of intervertebral foramina of lumbar region
CPT/HCPCS: 72148

== ENCOUNTER → 2021-11-24 | Outpatient (CLI) | payer OTHER ==
[2021-11-24 18:31] LABS: African American GFR (CKD) 117.5 (60.0-200.0); Anion Gap 12.4 mmol/L (10.00-18.00); BUN/Creat Ratio 17.89 Ratio (12.00-20.00); Blood Urea Nitrogen 16.1 mg/dL (9.0-27.0); Calcium 10.4 mg/dL (8.7-10.3); Carbon Dioxide 26.6 mmol/L (20.0-27.5); Non-African American GFR(CKD) 101.4 (60.0-200.0); Potassium 4.6 mmol/L (3.5-5.5)
== END | disposition home or self-care (01) ==
LOC: LABWHC1 10:49
PROVIDERS: ATTEND Urology
DX: R82.994 Hypercalciuria (principal)
CPT/HCPCS: 36415; 80048

== ENCOUNTER → 2022-01-06 | Outpatient (CLI) | payer OTHER | END | disposition home or self-care (01) | LOC: LABPAT 11:01 | PROVIDERS: ATTEND Orthopaedic Surgery | DX: Z01.812 Encounter for preprocedural laboratory examination (principal); Z22.322 Carrier or suspected carrier of Methicillin resistant Staphylococcus aureus | CPT/HCPCS: 87070 ==

== ENCOUNTER 2022-01-14 11:10 | Inpatient (IN) | payer OTHER ==
[2022-01-12 10:11] VITALS: BMI 36.9
[~2022-01-14 11:10] MED LIST changes: +ACETAMINOPHEN TAB 500 MG TAB PO PRN; +GABAPENTIN 300 MG CAP PO PRN; +HYDROmorphone 0.5 MG/0.5 ML SYRINGE IVP PRN; +LACTATED RINGERS 1,000 ML IV SCH; +ONDANSETRON 4 MG/2 ML VIAL IVP PRN; +TRANEXAMIC ACID IN NACL,ISO-OS 1,000 MG in SALINE 1 100ML.BAG IVPB PRN; +ceFAZolin 3 GM in SODIUM CHLORIDE 0.9% 100 ML IVPB PRN
[2022-01-14] MEDS ORDERED: fentaNYL (PF) 50 MCG/ML 2 ML AMP IVP ONE (13:00)
--- NOTE | 2022-01-14 13:41 | P.HPOR ---
History of Present Illness H&P Date: 01/14/22 Chief Complaint: Irritable Hardware low ack .D:Date: 12/09/21 : 09:18am .T:Title: [facility] Date of :[birth year] R14 Allergies: Age: 46 year Height: 5'11" Weight: 270 lbs BP:126/80 VAS: 6 CHIEF COMPLAINT: Low back pain DOI: Chronic, no injury or trauma. DOS: Lumbar ALIF, PLIF 2014 Duration of current treatment regiment: 8 months HISTORY : Xrays No new xrays taken in office Trauma or injury No Work-Related No Pain description sharp. Location diffuse Activity Modification yes , unable to stand or ambulate for extended periods of time. Hand Dominance right TREATMENTS COMPLETED: 6 weeks of PT completed? Month and Year of last PT date? 02/2021 Yes How many sessions? 12 Did it help? No Physician directed home exercise completed? Duration of HEP course: Current, daily yes Patient has trialed the physician directed home exercise program for 6 months relief of their symptoms. Medications yes List: Walnut [place] 5/325mg and now 7.5/325mg with mild improvements to his symptoms. Lidocaine patches, Percocet without improvements to his symptoms. Medrol Dosepak trialed after appmt on 08/27/2021 without relief of his symptoms. Alternative interventions Chiropractic?: Yes (last done in 2019), without significant improvements Brace: No Tens unit with no improvements to his symptoms. Followed the supplement regimen without discernable improvements. Injections Lumbar MARIA DE JESUS's done several years ago without improvements.Did have a recent MARIA DE JESUS on 06/30/2021 without any relief of his symptoms. RFA: No SUBJECTIVE: Patient returns to the office today for a follow up on his lumbar spine pain. He reports numbness that radiates dowon his hip to both of his knees. He notes that he has had 2 rounds of SI injections with minimal relief. He had a recent trigger point injection on 11/11/2021 with relief for 1 hours but no lasting relief. Continues to have pain in the Left low back near his hardware which is exacerbated with palpation of the hardware. No other issues. No bowel or bladder issues. History Mr. Tyson last presented to the office 11/04/2021 for a recheck of their lumbar spine and to review his repeat MRI obtained after the time of his last appointment on 08/27/2021. Since the time of the last appointment the patient reports no improvements to his symptoms. The patient continues to complain of lumbar pain ongoing for many years and does have history of prior lumbar fusion with revisions. In addition to their lumbar pain, they do report that it radiates into the bilateral buttocks and lower extremities, associated withnumbness and tingling through the bilateral feet. Overall the patient has seen a progressive increase in symptoms since their onset. Mr. Tyson symptoms are exacerbated with prolonged standing, ambulation, and high impact activities like walking up and down the stairs. Due to this they notes that it is increasingly difficult for Mr. Tyson to complete many of their daily tasks. Patient is having moderate sleep disturbances as well due to their ongoing pain and associated symptoms. Regarding treatments, the patient has previously trialed all abovementioned treatment modalities all without lasting relief of his symptoms. Of note he has returned to the chiropractors and has found some mild improvements to his RLE radicular pain. Patient denies trialing any other modalities at this time. For their symptoms, the patient has been taking [place] with mild relief and did complete the Medrol Dosepak ordered at the time of the last appointment without any relief of his symptoms. Otherwise the patient denies any f/c/sob/cp, no incision concerns, no bladder or bowel retention/incontinence, no perineal numbness/tingling, and ambulates independently. Mr. Tyson last presented to the office on 08/27/2021 for a recheck of his lumbar spine. Since the time of the last appointment the patient reports that he has seen no changes to his symptoms as reported at his last appointment with Halley. Overall he denies any lasting improvements to his symptoms with all c onservative modalities trialed thus far including physician recommended home exercise programs, chiropractics, Tens unit, supplements, lumbar MARIA DE JESUS's and medications listed above. The patient continues to complain of pain across the low back extending into the buttocks and the bilateral lower extremities, right worse than left. Additionally he continues to complain of numbness and tingling into the bilateral feet which is impacting his gait. Overall his symptoms are made worse with prolonged standing and ambulation which is making completion of his daily tasks very challenging. Otherwise the patient denies any f/c/sob/cp, no bladder or bowel retention/incontinence, no perineal numbness/tingling, and ambulates with the use of a cane. Patient presented on 08/21/2021 with Halley Canela to the office for a recheck of the lumbar spine and to reassess post injection. Patient states he had 1 injection administered 06/30/2021 with no relief. He states he had surgery approximately 3 weeks ago to remove kidney stones in the left kidney. Patient states that pain is still present it is worse on the right side and radiates down his leg. Patient is ambulating with cane. Encouraged patient that he should follow up with PM&R for the other 2 injections, patient refuses stating he went through all of this with his right hip and feels that it will not work. He is currently taking [place] 12/21/2024 3 times a day prescribed by PCP. Patient states he would like to talk about surgical intervention at this time with Dr. Winters. He continues to deny any bowel or bladder incontinence. Patient presents 04/27/2021 to the office for a recheck of lumbar spine and to review the results of his CT scan completed on 03/27/2021. Since the time of the last appointment the patient reports that he has seen no improvements to his symptoms. He has trialed the physician directed HEP without any improvements. He denies having completed any other new treatment modalities since the time of the last appointment. Today he reports continued disability and issue with completing many of his daily functions due to the severity of his symptoms. Otherwise he continues to deny any bladder or bowel retention/incontinence, no perineal numbness/tingling, and ambulates without the use of any aides. Mr. Tyson last presented to the office on 03/02/2021 for an evaluation of his low back. To review, the patient does have a history of low back issues dating back to his time in the 20+ years ago. He additionally reports that his symptoms were exacerbated when he "fractured" his back in 2002. Due to his chronic back pain he did have a hx of three lumbar surgeries including an ALIF and PLIF done in 2014 at [place] through [facility]. Patient denies remembering the name of the surgeon. After the back surgery he notes that his symptoms were improved until he had a right ELISA done in 2019. After this he has noticed increased lumbar pain that radiates into the bilateral lower extremities, left worse than right. His low back is TTP about the midline as well as the lateral regions. As for his bilateral lower extremities he notes that this pain is less constant than the low back pain but is greatly exacerbated with movement. he also reports having numbness/tingling in the distal extremities of both legs. Overall his symptoms are exacerbated with any weightlifting, ambulation, and standing for extended periods of time. Due to his symptoms he notes that he is disabled and unable to complete most of his daily functions. As for treatments, the patient reports that he has taken Lidocaine patches and Percocet without any improvements, Wal[place] with mild improvements, has tried a Tens unit with no effect, and is unable to do home exercises as they greatly exacerbate his symptoms. He does deny any bladder or bowel issues, no perineal numbness/tingling, and presents to the office with the use of a cane. The patients' past social, medical, family, surgical history, as well as review of systems, have been reviewed. Please refer to the Neurosurgery History and Physical form that has been scanned in to our electronic medical record system. 16 points review of systems completed and as stated in HPI, all other systems reviewed are negative. Social History: Reviewed, see appropriate section of the chart for details. P3 Social History: Smoking: current smoker P3 Alcohol: none P3 Family History: Reviewed, see appropriate section of the chart for details. P2 Past Medical History: Reviewed, see appropriate section of the chart for details. [id number] Medications: Rx: Depakote 125 mg tablet,delayed release Ref: 0 Rx: omeprazole Ref: 0 Rx: PROzac Ref: 0 Rx: HYDROcodone 10 mg-acetaminophen 325 mg tablet Ref: 0 Rx: Motrin Ref: 0 Rx: TylenoL 325 mg capsule Ref: 0 PHYSICAL EXAMINATION: General: Awake, alert, appropriate for age, in no acute distress. HEENT: No unusual neck masses around region of lateral neck triangle, thyroid, supraclavicular groove Heart: Regular rate and rhythm, normal S1, S2 and no murmur/gallop. Lungs: Clear to auscultation bilaterally with no use of accessory muscles. Extremities: Skin warm and dry without acute lesions, coloration, temperature, skin intact, no tenderness or erythema Integument: Hairy patches: Absent Dorsal skin dimples: Absent Cafe au lait spots: Absent Surgical incisions: yes Transverse incision well healed Posterior lumbar incision well healed Palpation: Please see Pain drawing on Intake sheet for further detail. Midline spinal tenderness: Yes E6 Paralumbar tenderness: Yes Parathoracic tenderness: No E6 Buttocks tenderness: No E6 Special findings: Yes Prominent TTP over the bilateral SI joint, left worse than right POSTURAL and MUSCULO-SKELETAL EVALUATION: Coronal Balance: NEUTRAL Recumbent testing: Patient is able to lay flat on back Sagittal Balance: NEUTRAL Shoulder Profile: LEVEL Pelvic Girdle: LEVEL Neck ROM: UNRESTRICTED Lumbar ROM: Restricted with pain Shoulder ROM: Symmetrical Hip ROM: Symmetrical Knee ROM: Symmetrical Hands: Normal appearance, symmetrical Feet: Normal appearance, Symmetrical VASCULAR STATUS : LEFT RIGHT Wrist Pulses INTACT INTACT Pedal Pulses (Dors. pedis & post.tibialis) INTACT INTACT Color NORMAL NORMAL Edema Absent Absent NEUROLOGIC EXAMINATION: Mental Status:Awake and alert, fully oriented, with normal attention, concentration and memory, and fluent, appropriate speech. Cranial Nerves: I: Olfactory not tested. II: Visual acuity normal, no visual field deficit noted with confrontation. III,IV: Normal pupillary reflexes & intact extraocular movements without nystagmus. V,: Intact symmetrical facial sensation. VII: Intact symmetrical facial motor movement VIII: Hearing intact. IX,X: Intact gag, swallow, & normal voice. XI: Sternocleidomastoid, trapezius function intact. XII: Tongue midline with normal movements. L'hermitte's Sign: Negative / absent Spurling'Sign: Absent bilaterally. Cubital percussion test: Absent bilaterally. Esthela-Tinel sign - Carpal region: Absent bilaterally. Straight Leg Raising: Absent bilaterally. Crossed straight leg raise: negative O8 MOTOR EXAM (0-5/5, N/T) STRENGTH RIGHT LEFT Shoulder Abd (not part of the ANDERS score) 5 5 Elbow Flexors 5 5 Elbow Extensor 5 5 Wrist Dorsiflexors 5 5 Finger Abductor 5 5 Malariologist 5 5 Hip Flexor (Not part of ANDERS Motor score) 4- 4- Knee Flexor 4- 4- Knee Extensor 4- 4- Ankle dorsiflexor 4+ 4+ Ankle plantarflexion 4+ 4+ Extensor hallucis 5 5 REFLEXES(0-4/2, NT) RIGHT LEFT Upper Extremities 2 2 Lower Extremities 2 2 Pathological Reflexes RIGHT LEFT Lui's Absent Absent Clonus Absent Absent Babinski Absent Absent # Indicates mechanical impairment Muscle appearance: Symmetrical, without signs of atrophy or dystrophy. Sensory system (0-4, N/T) Test type RU CHANEL RL LL Joint-Position 2 2 2 2 Vibration 2 2 2 2 Pain & LT sense 2 2 2 2 Dermatomal Deficit: None None None None Gait and Functional Evaluation: Ambulatory aids: Cane Romberg's test: Intact bilaterally Toe heel walk / heel-toe walk intact while maintaining satisfactory balance? yes Squatting/straightening w/o assistance to a min of 60 degree knee flexion? yes Single leg stance: intact Trendelenburg sign negative bilaterally Hand and finger dexterity intact bilaterally? yes Disdiadochokinesis examination negative bilaterally? yes RADIOGRAPHIC STUDIES: Xrays obtained on 03/02/2021 of the lumbar spine and pelvis demonstrates: Multiple view of the L spine show post surgical changes at L5-S1 with Anterior and posterior fusion construct. There is ALIF in position with plate and screws as well as L5-S1 posterior screws. Construct appears in good position no acute changes noted. Minimal anterior fusion noted on Xray. No fracture no dislocation noted. AP pelvis shows post surgical changes with Rt hip ELISA in good position no evidence of hardware failure. Pelvis is level and stable. This demonstrates some disc dessication at L4-5, mild. No stenosis noted. Hardware creates artifact making L5-S1 difficult to assess. No evidence of fluid, fracture dislocation or complicating process noted. CT myelogram from 03/27/2021 of the lumbar spine is reviewed and demonstrates: This demonstrates post surgical changes L5-S1 with good construct and notable bone anteriorly for fusion. There is facet fusion noted as well. Hardware appears well positioned w/o any complicating issues, loosening or migration. There are no fractures noted. There is no severe stenosis noted. There is mild ASD at L4-5 noted with disc height collapse. MRI from 09/07/2021 of the lumbar spine demonstrates: images reviewed with the patient and the office to strip postsurgical changes L5-S1 with hardware in position. There is good decompression noted at L5-S1 as well. There is no residual stenosis. No lesions noted. Foramen are patent. Scar tissue noted posteriorly over the area where the patient complains of pain. No complicating processes seen. IMPRESSION: It was my pleasure to have seen and examined Alfonso. I reviewed the patient's clinical syndrome, physical findings, and imaging studies during the appointment today. It is my impression that the patient has a diagnosis of. 1. 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 Right lower extremity weakness 4. Left sacroiliitis I outlined the natural course history without intervention and various interventional options. PLAN: All options were reviewed today, we decided the best course of action would be: - Recommended removal of hardware L5-S1 posteriorly to relieve the irritability for the patient We discussed risks and benefits of this. The patient is fused and so the hardware can safely come out as it is likely the culprit of his continued pain. We will work the patient up for infection or other causes in the meantime but schedule him for hardware removal. He understands if there is mobility at this segment when the removal happens that we would need to replace hardware and refuse him and he understands this. - Pre op PCP clearance for surgery -Cont with activity as tolerated, continue with medications and conservative measures as able. . Follow- up: Post op Patient Education (Informational booklet, instructions, etc) given at today's appointment: Yes .ED:Patient Education: Y Plan at next visit: X-ray Medications Reviewed: yes Attestation: In our visit today Mr. Tyson and I have had a chance to go over my understanding of the patient's current condition, the natural course history without intervention and various interventional options. Questions were invited and answered, and the patient wishes to proceed as outlined above. I will be sure to keep you updated afterMr. Tyson returns here for further follow-up. Thank you again for your referral. Please do not hesitate to contact me if you have any further questions. Signed and authenticated by: Norm Garay [facility] [address] [facility], [address] [address] This message is confidential, intended only for the named recipient(s) and may contain information that is privileged or exempt from disclosure under applicable law. If you are not the intended recipient(s), you are notified that the dissemination, distribution or copying of this information is strictly prohibited. If you received this message in error, please notify the sender then delete this message. Patient verbalizes understanding of the information discussed. The above note was initiated by Sarah Beth Ochoa, physician recording assistant associate full professor for Dr. Norm Winters. This note has been reviewed by Dr. Winters, who has made his personal changes and impressions for this document. # SIGNED BY Norm Winters (GOO)12/09/2021 10:33AM Past Medical History Past Medical History: GERD/Reflux, Hypertension, Musculoskeletal Disorder Additional Past Medical History / Comment(s): kidney stones History of Any Multi-Drug Resistant Organisms: None Reported Past Surgical History: Back Surgery, Joint Replacement, Orthopedic Surgery Additional Past Surgical History / Comment(s): multiple back surgeries, right hip surgery, several kidney stone removals, left shoulder surgery, finger surgery-reattached was cut while in the [employer] Past Anesthesia/Blood Transfusion Reactions: No Reported Reaction Smoking Status: Former smoker - Past Family History Mother Family Medical History: No Reported History Father Family Medical History: No Reported History Medications and Allergies Home Medications Medication Instructions Recorded Confirmed Type Losartan [Cozaar] 50 mg PO DAILY 03/03/21 01/12/22 History Omeprazole 20 mg PO DAILY 03/03/21 01/12/22 History Prazosin [Minipress] 1 mg PO HS 03/03/21 01/12/22 History Propranolol [Inderal] 10 mg PO BID PRN 03/03/21 01/12/22 History traZODone HCL 50 mg PO HS 03/03/21 01/12/22 History Ascorbic Acid [Vitamin C] 2,000 mg PO DAILY 04/02/21 01/12/22 History Cholecalciferol [Vitamin D3 (25 25 mcg PO DAILY 04/02/21 01/12/22 History Mcg = 1000 Iu)] S-Adenosylmethionine Sul Tosyl 400 mg PO DAILY 04/02/21 01/12/22 History [Rashaun-E] Turmeric Root Extract [Turmeric] 500 mg PO DAILY 04/02/21 01/12/22 History HYDROcodone/APAP 7.5-325MG [[place] 1 tab PO BID 05/18/21 01/12/22 History 7.5-325] buPROPion [Wellbutrin] 100 mg PO DAILY 01/12/22 01/12/22 History Allergies Allergy/AdvReac Type Severity Reaction Status Date / Time cat dander Allergy Unknown Verified 01/14/22 12:07 DUST MITES AdvReac Unknown Uncoded 01/14/22 12:07 Physical Examination Osteopathic Statement: *. No significant issues noted on an osteopathic structural exam other than those noted in the History and Physical/Consult.
[2022-01-14] MEDS ORDERED: MIDAZOLAM 2 MG/2 ML VIAL ONE (13:57)
[2022-01-14] MEDS ORDERED: ROCURONIUM 10 MG/ML (5 ML VIAL) IV ONE (13:57)
[2022-01-14] MEDS ORDERED: LIDOCAINE 2% INJ 20 MG/ML (2 ML VIAL) ONE (13:57)
[2022-01-14] MEDS ORDERED: GLYCOPYRROLATE 0.2 MG/ML 2 ML VIAL ONE (13:57)
[2022-01-14] MEDS ORDERED: SUCCINYLCHOLINE CHLORIDE 200 MG/10 ML VIAL IV ONE (13:57)
[2022-01-14] MEDS ORDERED: HYDROmorphone (PF) 1 MG/ML ONE (13:57)
[2022-01-14] MEDS ORDERED: PROPOFOL 10 MG/ML 20 ML VIAL IV ONE (13:57)
[2022-01-14] MEDS ORDERED: NEOSTIGMINE 1 MG/ML 10 ML VIAL ONE (13:57)
[2022-01-14] MEDS ORDERED: fentaNYL (PF) 50 MCG/ML 2 ML AMP ONE (13:57)
[2022-01-14] MEDS ORDERED: GELATIN SPONGE,ABSORB (LARGE) 1 EACH SPONGE TOPICAL ONE (14:25)
[2022-01-14] MEDS ORDERED: THROMBIN (BOVINE) 5,000 UNIT VIAL TOPICAL ONE (14:25)
[2022-01-14] MEDS ORDERED: ceFAZolin 3,000 MG in SODIUM CHLORIDE 0.9% IRRIGATIO 3,000 ML IRRIGATION ONE (14:25)
[2022-01-14] MEDS ORDERED: BUPIVACAINE (PF) 0.5% 30 ML VIAL SQ ONE (14:25)
[2022-01-14] MEDS ORDERED: LACTATED RINGERS 1,000 ML IV ONE (15:16)
--- NOTE | 2022-01-14 16:12 | FL ---
Fluoroscopy HISTORY: Hardware removal 21 seconds fluoroscopy time supplied to the referring clinician. 3 intraoperative C-arm images docum ent the procedure. See dictated report from orthopedic surgery.
[2022-01-14 16:15] VITALS: TEMP 97.2
[2022-01-14] MEDS ORDERED: HYDROmorphone 1 MG/ML 1 ML SYRINGE IVP ONE (16:25)
--- NOTE | 2022-01-14 16:28 | P.OP ---
Date of Procedure: 01/14/22 Preoperative Diagnosis: 1. Irritable hardware L5-S1 2. LBP due to hardware 3. s/p multiple fusion surgeries Postoperative Diagnosis: 1. Irritable hardware L5-S1 2. LBP due to hardware 3. s/p multiple fusion surgeries Procedure(s) Performed: 1. Irrigation and debridement lumbar spine skin, muscle and bone 5x5x5 cm using the following (44666) -knife to incise skin -Sheila to remove bone -Rongure to debride loose soft tissue and bone 2. Bilateral removal of hardware L5-S1 screws and rods (98959/50) 3. Revision posteriolateral fusion L5-S1 with bone grafting (59122) Implants: MagnatOs Allograft Autograft Removal of Medtronic Solara 8.5x55 mm screws L5 and 8.5x45 screws S1 Anesthesia: GETA Surgeon: Norm Winters Physical Education Professor #1: Halley Canela (was present and assisted in all aspects of the case including positioning exposure by removal fusion closure and dressing placement) Estimated Blood Loss (ml): 100 IV fluids (ml): 500 Urine output (ml): 250 Pathology: none sent Condition: stable Disposition: PACU Indications for Procedure: Spine Surgery Clinical and Risk Review Alfonso Tyson is a 46-year-old malepresenting for evaluation of low back pain with irritable hardware status post multiple fusions with refractory to conservative management. It was my pleasure to have seen and examined Alfonso Tyson In our visit today we have had a chance to go over subjective complaints, physical examination findings and treatments including the natural course history without intervention and various interventional options. The patients imaging demonstrates 360 fusion L5-S1 with anterior talofibular interbody and cage as well as plate in position with posterior instrumentation as well. reasonable effusion is noted at L5-S1 no evidence of hardware fracture. On physical exam, Kaushik Tyson demonstrates pain with palpation over the hardware relief of pain over the hardware with injection of muscle and fascia in this region with lidocaine.no neurologic symptoms at this time. I have explained to the patient that as their condition progresses it will cause further neurological deficits and eventual paralysis. Based on the patients imaging, physical exam, and the rapid progression and disabling nature of their symptoms, at this time I recommend surgery in the form or a: irrigation and debridement with removal of hardware and possible revision fusion L5-S1. I discussed the risk and benefits of this procedure at length with Alfonso Tyson. The patient agreed to considered pursuing the procedure abovementioned. Prior to surgery, she should follow up with her PCP (Cardio, ID, IM etc) for clearance. Questions were invited and answered, and the patient wishes to proceed as outlined below. Currently, I am recommendin. irrigation and debridement with removal of hardware and possible revision fusion L5-S1 2. Follow up with PCP for surgical clearance 3. Review of surgical risks and benefits as well as an educational packet on the proposed surgical procedure. Risks: All surgical procedures come with inherent risks, including those related to positioning, anesthesia, intraoperative findings, and postoperative complications. It is important to understand that surgery does not come with any guarantee of a successful outcome as complications and adverse events are always possible. The patient was given a handout in office today discussing the surgical procedure and risks associated with the intervention, both of which were discussed with the patient. These risks include but are not limited to the following: * Experiencing same, different or even worse symptoms in back, neck, arms, or legs compared to before surgery. * Requiring further surgery or other forms of treatment presently or at some time in the future at same or other levels of the intended spine surgery. * On an extreme but fortunately relatively rare basis severe complication such as blindness, stroke, heart attack, temporary and/or permanent nerve injury, paralysis, coma, or may occur, sometimes without known explanation. * Surgical complications may include but are not limited to risk of infection, fluid accumulation in the surgical dissection site, including a seroma or hematoma, that requires additional surgery, wound drainage, bleeding, new numbness or weakness, vision changes/loss, spinal fluid leakage, non-healing and/or infected incision, headaches, difficulty or inability to swallow, hoarseness, hemopneumothorax, pneumothorax, impotence, retrograde ejaculation, vaginal dryness; injury to nerves, spinal cord, blood vessels, lymphatics or other vital organs (i.e., bowel injury, injury to the great vessels); heterotopic bone formation; complications related to the hardware such as screws, rods, cages including misplaced hardware, device failure, instrumentation at the wrong spine level, hardware fracture/breakage, or hardware loosening; vertebral failure of the spinal column above or below the newly placed hardware; retained surgical instrumentations or devices and the need for further surgery. * Medical risks of the planned spine surgery include but are not limited to generalized Infections to the whole body or local areas outside of the surgical site (sepsis), heart attack, bleeding, anaphylaxis, meningitis, seizure, epilepsy, hearing loss, burn morris, laceration of the head or other areas of the body, bruising, hypersensitivity of the skin, bladder over distension; allergic reaction; shoulder injury related to positioning; fat, blood and air clots to other areas of the body like heart, lungs, brain; failure of internal organs such as lungs, kidneys, liver and excessive bleeding. If blood transfusions are necessary, note that transfusions may cause intolerance reactions such as anaphylaxis or other complex reactions. * Despite best efforts, the results of spine surgery might not heal in terms of bone, soft tissues such as skin, fascia, ligaments, and joints. Additionally, in order to achieve best possible results, spine surgery may be carried out beyond the initially planned levels and involve decompression, fusion including insertion of hardware at levels other than the original intended area of surgical interest change some portions of the procedure in order to ensure the best possible outcomes. * With spine surgery and spinal fusion, there are different off label uses of instrumentation (devices, implants and hardware) as well as biological substances (bone morphogenic proteins, demineralized bone matrix) as well as using extra bone from allograft sources (i.e. cadaver bone) or autograft (iliac crest bone, ribs, or the spine itself). The patient has been given information about these practices and their inherent risks and benefits. The patient has had a chance to review all the listed information, has been given print outs detailing this information, and has had all his/her questions answered to their satisfaction. It was my pleasure to have seen and examined Alfonso Tyson. In our visit today we have had a chance to go over my understanding of our patient's current condition, the natural course history without intervention and various interventional options. Questions were invited and answered, and the patient wishes to proceed as outlined above. I have seen and examined the patient for 25 minutes and we have spent more than 50% of the time in repeat and detailed counseling about the patient's condition, its natural course history with out and as much as can be predicted with surgery and re-review of various surgical treatment options. In conclusion, Alfonso Jah and requested we proceed with the above suggested surgery and are willing to accept risks and limitations of the suggested surgery as nature of the disease process and our best attempts at treatment for the condition. Thank you again for allowing us to be part of your patient's care. Please don't hesitate to contact me if you have any further questions. Signed and authenticated by: Norm Kong [facility] [address] [place] [address] Description of Procedure: The patient was seen and examined in the preoperative area. All preoperative protocols were followed. Informed consent was obtained risks and benefits of the procedure were discussed at length. Risks including bleeding infection damage to the surrounding tissue and risk of reoperation were discussed with the patient. Risk of anesthesia up to and including was a discussed with the patient. These are outlined in the risk review. They were willing to accept these risks and all of the risks of surgery. The patient was given a weight- based dose of antibiotics in the form of 2 g Ancef. The patient was seen and evaluated by the anesthesia team who deemed them fit for surgery. The site was marked, the patient was willing to proceed with the procedure. The patient was transferred to the operative suite by the Department of anesthesia. They were then drifted off to sleep by the department anesthesia and GETA was performed. The patient tolerated this well. [Acuña catheter was placed by nursing staff, atraumatically]. Once confirmation of lines and ventilation the patient was transferred to a [prone Ra table very carefully]. All bony prominences including wrists, elbows, axilla, chest, hips, and thighs, and feet were padded very well. Special attention was paid to the genitalia and these were padded accordingly. SCDs were placed on bilateral lower extremities and were connected. Arms were well padded and placed [on arm boards up and out in the 90/90 position]. Once in position, again we confirmed good ventilation capabilities and that lines were running appropriately. The patient's lumbar spine was then exposed. 1010s were placed outlining the incision site. Standard alcohol was used to clean the incision site and allowed to dry. C-arm was used to biomark the patient and confirm level for incision which was marked with a skin marker. Operative briefing was performed with all teams and everyone in agreement to proceed. The patient was then prepped and draped in a normal sterile fashion. Timeout was then performed and all parties were in agreement with the procedure to be performed. starting on the left-hand side a paramedian incision was marked out and over the previous hardware skin incision was made and careful dissection was taken down in a will see type approach over the hardware. Retractor was placed hardware was identified and was then cleaned with the Bovie as well as Dipak. The screws and rods were removed. We then used Dipak to remove any floating bone or other bone in the area speed bur was used to decorticate the area. The area irrigated thoroughly this area with antibiotic saline solution. Debrided any further muscle and scar tissue from the area. After thorough debridement and decorticated as well as irrigation a small strip of Vitoss was placed deep in the posterior lateral region along with autograft and allograft and impacted into place. We then performed a layered closure first and the fascia with 0 Vicryl followed by 0 Vicryl in the superficial fascia 2-0 Vicryl in the subcu tissue 30 strata fix and the subcuticular tissue and skin glue on the skin. The wound edges approximated very well. We then turned our attention to the right hand side where we once again marked out with x-ray a paramedian incision over the hardware. Incision was made and dissection taken down carefully through will see type approach into the hardware was encountered. Hardware was cleaned of any scar tissue overlying bone and m uscle. The screws and rods were then removed. We then debrided the area using Dipak as well as high-speed bur to decorticate area. Meticulous hemostasis was performed. We then irrigated the area thoroughly with antibiotic saline solution. Further debridement was performed and decortication and then Magnant toss was selected and placed deep in the posterior lateral region along with autograft and allograft. This is impacted into place. Once it was in good position final x-rays were taken which confirmed removal of hardware. We then proceeded with layer closure on the right-hand side first with 0 Vicryl in the deep fascia followed by 0 Vicryl in the superficial fascia subcu was closed with 2-0 Vicryl and subcuticular closed with 3-0 Monocryl. The wound edges approximated well the wounds were then cleaned and dressed with Dermabond tape and glue followed by a soft dressing once it dried. The patient was transferred back to their hospital bed atraumatically. Patient was then awakened and extubated by the department of anesthesia having tolerated the procedure very well with no complications. They were transferred to the postoperative care unit in stable condition.
[2022-01-14] MEDS ORDERED: fentaNYL (PF) 50 MCG/ML VIAL IVP ONE (16:41)
[2022-01-14 17:08] VITALS: RESP 18
[2022-01-14] MEDS ORDERED: HYDROcodone/APAP 10-325MG 1 EACH TAB ONE (17:09)
[2022-01-14] MEDS ORDERED: HYDROcodone/APAP 10-325MG 1 EACH TAB PO ONE (17:11)
[2022-01-14 17:16] VITALS: BP 110/76; PULSE 70
== END 2022-01-14 17:42 | disposition home or self-care (01) | DRG 497 ==
LOC: 2ORMAIN 11:10 → EDSTATUS 12:00
PROVIDERS: ADMIT Orthopaedic Surgery; ATTEND Orthopaedic Surgery
PROC: 0WBL0ZZ Excision of Lower Back, Open Approach (ICD-10-PCS; principal; 2022-01-14 12:45)
PROC: 8E0WXBG Computer Assisted Procedure of Trunk Region, With Computerized Tomography (ICD-10-PCS; principal; 2022-01-14 12:45)
PROC: 0QP104Z Removal of Internal Fixation Device from Sacrum, Open Approach (ICD-10-PCS; principal; 2022-01-14 12:45)
PROC: 0QP004Z Removal of Internal Fixation Device from Lumbar Vertebra, Open Approach (ICD-10-PCS; principal; 2022-01-14 12:45)
DX: T84.84XA Pain due to internal orthopedic prosthetic devices, implants and grafts, initial encounter (principal); G89.29 Other chronic pain; I10 Essential (primary) hypertension; M46.1 Sacroiliitis, not elsewhere classified; J30.81 Allergic rhinitis due to animal (cat) (dog) hair and dander; M54.10 Radiculopathy, site unspecified; Z79.899 Other long term (current) drug therapy; Z87.442 Personal history of urinary calculi; Y84.8 Other medical procedures as the cause of abnormal reaction of the patient, or of later complication, without mention of misadventure at the time of the procedure; Z98.1 Arthrodesis status
CPT/HCPCS: 72100; 86850; 86900; 86901

== ENCOUNTER 2022-08-31 15:12 | Emergency (ER) | payer OTHER ==
[2022-08-31 16:41] VITALS: TEMP 99
--- NOTE | 2022-08-31 17:07 | ED ---
Male Urogenital HPI - General Source: patient, RN notes reviewed Mode of arrival: ambulatory Limitations: no limitations <Chayo Herndon - Last Filed: 08/31/22 17:06> - General Source: patient, RN notes reviewed Mode of arrival: ambulatory Limitations: no limitations <Manuel Garcia - Last Filed: 08/31/22 19:33> - General Chief complaint: Urogenital Stated complaint: L side pain Time Seen by Provider: 08/31/22 17:06 - History of Present Illness Initial comments: Patient is a 47-year-old male who presents the emergency department for left flank pain. He has history of kidney stones. (Chayo Herndon) Patient is a pleasant 47-year-old male presenting to the emergency department with concern for left side pain. Onset of symptoms a few days ago. Patient states pain starts in his back however does radiate somewhat to the abdomen. Patient is having mild nausea. Patient is having some mild urinary frequency. Patient does have history of chronic back problems. Patient also has history of frequent kidney stones and usually gets a couple per year. Patient is unclear which could be causing his symptoms. Patient states it kind of feels like both. (Manuel Garcia) - Related Data Home Medications Medication Instructions Recorded Confirmed Losartan [Cozaar] 50 mg PO DAILY 03/03/21 01/12/22 Omeprazole 20 mg PO DAILY 03/03/21 01/12/22 Prazosin [Minipress] 1 mg PO HS 03/03/21 01/12/22 Propranolol [Inderal] 10 mg PO BID PRN 03/03/21 01/12/22 traZODone HCL 50 mg PO HS 03/03/21 01/12/22 Ascorbic Acid [Vitamin C] 2,000 mg PO DAILY 04/02/21 01/12/22 Cholecalciferol [Vitamin D3 (25 25 mcg PO DAILY 04/02/21 01/12/22 Mcg = 1000 Iu)] S-Adenosylmethionine Sul Tosyl 400 mg PO DAILY 04/02/21 01/12/22 [Rashaun-E] Turmeric Root Extract [Turmeric] 500 mg PO DAILY 04/02/21 01/12/22 HYDROcodone/APAP 7.5-325MG [[place] 1 tab PO BID 05/18/21 01/12/22 7.5-325] buPROPion [Wellbutrin] 100 mg PO DAILY 01/12/22 01/12/22 Previous Rx's Medication Instructions Recorded Cyclobenzaprine [Flexeril] 5 mg PO TID #90 tablet 01/14/22 Gabapentin 300 mg PO TID #60 cap 01/14/22 HYDROcodone/APAP 10-325MG [[place] 1 tab PO Q4-6H PRN #56 tab 01/14/22 10-325] cefaDROXiL [Duricef] 500 mg PO Q12HR 3 Days #6 cap 01/14/22 Allergies Allergy/AdvReac Type Severity Reaction Status Date / Time cat dander Allergy Unknown Verified 08/31/22 16:40 DUST MITES AdvReac Unknown Uncoded 08/31/22 16:40 Review of Systems ROS Other: All systems not noted in ROS Statement are negative. <Chayo Herndon - Last Filed: 08/31/22 17:06> ROS Other: All systems not noted in ROS Statement are negative. Constitutional: Denies: fever Eyes: Denies: eye pain ENT: Denies: ear pain Respiratory: Denies: cough, dyspnea Cardiovascular: Denies: chest pain Endocrine: Denies: fatigue Gastrointestinal: Reports: as per HPI, nausea. Denies: vomiting Genitourinary: Reports: as per HPI. Denies: dysuria Musculoskeletal: Reports: as per HPI, back pain <Manuel Garcia - Last Filed: 08/31/22 19:33> ROS Statement: Those systems with pertinent positive or pertinent negative responses have been documented in the HPI. Past Medical History Past Medical History: GERD/Reflux, Hypertension, Musculoskeletal Disorder Additional Past Medical History / Comment(s): kidney stones History of Any Multi-Drug Resistant Organisms: None Reported Past Surgical History: Back Surgery, Joint Replacement, Orthopedic Surgery Additional Past Surgical History / Comment(s): multiple back surgeries, right hip surgery, several kidney stone removals, left shoulder surgery, finger surgery-reattached was cut while in the [employer] Past Anesthesia/Blood Transfusion Reactions: No Reported Reaction Past Psychological History: Anxiety, PTSD Smoking Status: Former smoker Past Alcohol Use History: None Reported Past Drug Use History: Marijuana - Past Family History Mother Family Medical History: No Reported History Father Family Medical History: No Reported History <Chayo Herndon - Last Filed: 08/31/22 17:06> General Exam Limitations: no limitations <Chayo Herndon - Last Filed: 08/31/22 17:06> Limitations: no limitations General appearance: alert, in no apparent distress Head exam: Present: normocephalic Eye exam: Present: normal appearance Neck exam: Present: normal inspection Respiratory exam: Present: normal lung sounds bilaterally Cardiovascular Exam: Present: regular rate, normal rhythm Expanded Peripheral pulses: 2+: Posterior Tibialis (R), Posterior Tibialis (L) GI/Abdominal exam: Present: soft, tenderness (Minimal tenderness left lateral flank). Absent: distended, guarding, rebound, rigid Extremities exam: Present: normal inspection. Absent: pedal edema, calf tenderness Back exam: Present: paraspinal tenderness (Left-sided below the left CVA) Neurological exam: Present: alert Psychiatric exam: Present: normal affect, normal mood Skin exam: Present: normal color <Manuel Garcia - Last Filed: 08/31/22 19:33> - General Exam Comments Initial Comments: Visual Physical Exam Vital signs reviewed General: Well-appearing, nontoxic, no acute distress. Head: Normocephalic, atraumatic Eyes: PERRLA, EOMI ENT: Airway patent Chest: Nonlabored breathing Skin: No visual rash, normal skin tone Neuro: Alert and oriented 3 Musculoskeletal: No gross abnormalities (Chayo Herndon) Course Vital Signs 08/31/22 16:38 Temperature 99 F Pulse Rate 107 H Respiratory 20 Rate Blood Pressure 106/71 O2 Sat by Pulse 96 Oximetry Medical Decision Making - Lab Data Result diagrams: 08/31/22 18:10 08/31/22 18:10 <Manuel Garcia - Last Filed: 08/31/22 19:33> - Medical Decision Making Was pt. sent in by a medical professional or institution (, PA, MOBI[employer] INST[employer]ER, urgent care, hospital, or usp...) When possible be specific @ -No Did you speak to anyone other than the patient for history (EMS, parent, family, police, friend...)? What history was obtained from this source @ -No Did you review nursing and triage notes (agree or disagree)? Why? @ -I reviewed and agree with nursing and triage notes Were old charts reviewed (outside hosp., previous admission, EMS record, old EKG, old radiological studies, urgent care reports/EKG's, usp records)? Report findings @ -No old charts were reviewed Differential Diagnosis (chest pain, altered mental status, abdominal pain women, abdominal pain men, vaginal bleeding, weakness, fever, dyspnea, syncope, headache, dizziness, GI bleed, back pain, seizure, CVA, palpatations, mental health)? @ -Differential Abdominal Pain Men: Appendicitis, cholecystitis, diverticulosis, ischemic bowel, pancreatitis, hepatitis, UTI, gastroenteritis, AAA, incarcerated hernia, bowel obstruction, constipation, inflammatory bowel, hepatitis, peptic ulcer disease, splenic infarction, perforated viscus, testicular torsion, this is not meant to be an all-inclusive list EKG interpreted by me (3pts min.). @ -As above X-rays interpreted by me (1pt min.). @ -None done CT interpreted by me (1pt min.). @ -Report reviewed U/S interpreted by me (1pt. min.). @ -None done What testing was considered but not performed or refused? (CT, X-rays, U/S, labs)? Why? @ -None What meds were considered but not given or refused? Why? @ -None Did you discuss the management of the patient with other professionals (professionals i.e. , PA, MOBI[employer] INSTALLER, lab, RT, psych nurse, social worker masters, sweetbread trimmer, teacher, county health officer, behavioral health case manager)? Give summary @ -No Was smoking cessation discussed for >3mins.? @ -No Was critical care preformed (if so, how long)? @ -No Were there social determinants of health that impacted care today? How? (Homelessness, low income, unemployed, alcoholism, drug addiction, transportation, low edu. Level, literacy, decrease access to med. care, detention, rehab)? @ -No Was there de-escalation of care discussed even if they declined (Discuss DNR or withdrawal of care, Hospice)? DNR status @ -No What co-morbidities impacted this encounter? (DM, HTN, Smoking, COPD, CAD, Cancer, CVA, ARF, Chemo, Hep., AIDS, mental health diagnosis, sleep apnea, morbid obesity)? @ -None Was patient admitted / discharged? Hospital course, mention meds given and route, prescriptions, significant lab abnormalities, going to OR and other pertinent info. @ -Patient reevaluated and feeling much better following medications. Patient is comfortable discharge home. Patient does not feel he needs prescription for pain medication. Patient is updated on results and need for follow-up. Patient states he does have history of known renal cyst and does see urology for this, Dr. Long. Patient is agreeable with follow-up. Undiagnosed new problem with uncertain prognosis? @ -No Drug Therapy requiring intensive monitoring for toxicity (Heparin, Nitro, Insulin, Cardizem)? @ -No Were any procedures done? @ -No Diagnosis/symptom? @ -Back pain Acute, or Chronic, or Acute on Chronic? @ -Acute Uncomplicated (without systemic symptoms) or Complicated (systemic symptoms)? @ -default Side effects of treatment? @ -No Exacerbation, Progression, or Severe Exacerbation? @ -No Poses a threat to life or bodily function? How? (Chest pain, [place], [place], pneumonia, PE, COPD, DKA, ARF, appy, cholecystitis, CVA, Diverticulitis, Homicidal, Suicidal, threat to staff... and all critical care pts) @ -No (Manuel Garcia) - Lab Data Lab Results 08/31/22 08/31/22 08/31/22 Range/Units 16:42 18:10 18:10 WBC 9.0 (3.8-10.6) k/uL RBC 4.44 (4.30-5.90) m/uL Hgb 14.3 (13.0-17.5) gm/dL Hct 40.5 (39.0-53.0) % MCV 91.2 (80.0-100.0) fL MCH 32.3 (25.0-35.0) pg MCHC 35.4 (31.0-37.0) g/dL RDW 12.2 (11.5-15.5) % Plt Count 412 (150-450) k/uL MPV 7.3 Neutrophils % 58 % Lymphocytes % 33 % Monocytes % 6 % Eosinophils % 2 % Basophils % 0 % Neutrophils # 5.2 (1.3-7.7) k/uL Lymphocytes # 3.0 (1.0-4.8) k/uL Monocytes # 0.5 (0-1.0) k/uL Eosinophils # 0.2 (0-0.7) k/uL Basophils # 0.0 (0-0.2) k/uL Sodium 138 (137-145) mmol/L Potassium 3.7 (3.5-5.1) mmol/L Chloride 104 (98-107) mmol/L Carbon Dioxide 23 (22-30) mmol/L Anion Gap 11 mmol/L BUN 13 (9-20) mg/dL Creatinine 0.64 L (0.66-1.25) mg/dL Est GFR (CKD-EPI)AfAm >90 (>60 ml/min/1.73 sqM) Est GFR (CKD-EPI)NonAf >90 (>60 ml/min/1.73 sqM) Glucose 88 (74-99) mg/dL Plasma Lactic Acid Favian (0.7-2.0) mmol/L Calcium 9.3 (8.4-10.2) mg/dL Total Bilirubin 0.5 (0.2-1.3) mg/dL AST 26 (17-59) U/L ALT 31 (4-49) U/L Alkaline Phosphatase 75 (38-126) U/L Total Protein 7.3 (6.3-8.2) g/dL Albumin 4.5 (3.5-5.0) g/dL Lipase 43 (23-300) U/L Urine Color Light Yellow Urine Appearance Clear (Clear) Urine pH 7.0 (5.0-8.0) Ur Specific [place] 1.008 (1.001-1.035) Urine Protein Negative (Negative) Urine Glucose (UA) Negative (Negative) Urine Ketones Negative (Negative) Urine Blood Negative (Negative) Urine Nitrite Negative (Negative) Urine Bilirubin Negative (Negative) Urine Urobilinogen <2.0 (<2.0) mg/dL Ur Leukocyte Esterase Negative (Negative) 08/31/22 Range/Units 18:10 WBC (3.8-10.6) k/uL RBC (4.30-5.90) m/uL Hgb (13.0-17.5) gm/dL Hct (39.0-53.0) % MCV (80.0-100.0) fL MCH (25.0-35.0) pg MCHC (31.0-37.0) g/dL RDW (11.5-15.5) % Plt Count (150-450) k/uL MPV Neutrophils % % Lymphocytes % % Monocytes % % Eosinophils % % Basophils % % Neutrophils # (1.3-7.7) k/uL Lymphocytes # (1.0-4.8) k/uL Monocytes # (0-1.0) k/uL Eosinophils # (0-0.7) k/uL Basophils # (0-0.2) k/uL Sodium (137-145) mmol/L Potassium (3.5-5.1) mmol/L Chloride (98-107) mmol/L Carbon Dioxide (22-30) mmol/L Anion Gap mmol/L BUN (9-20) mg/dL Creatinine (0.66-1.25) mg/dL Est GFR (CKD-EPI)AfAm (>60 ml/min/1.73 sqM) Est GFR (CKD-EPI)NonAf (>60 ml/min/1.73 sqM) Glucose (74-99) mg/dL Plasma Lactic Acid Favian 1.4 (0.7-2.0) mmol/L Calcium (8.4-10.2) mg/dL Total Bilirubin (0.2-1.3) mg/dL AST (17-59) U/L ALT (4-49) U/L Alkaline Phosphatase (38-126) U/L Total Protein (6.3-8.2) g/dL Albumin (3.5-5.0) g/dL Lipase (23-300) U/L Urine Color Urine Appearance (Clear) Urine pH (5.0-8.0) Ur Specific [place] (1.001-1.035) Urine Protein (Negative) Urine Glucose (UA) (Negative) Urine Ketones (Negative) Urine Blood (Negative) Urine Nitrite (Negative) Urine Bilirubin (Negative) Urine Urobilinogen (<2.0) mg/dL Ur Leukocyte Esterase (Negative) Disposition <Chayo Herndon - Last Filed: 08/31/22 17:06> Is patient prescribed a controlled substance at d/c from ED?: No Time of Disposition: 19:33 <Manuel Garcia - Last Filed: 08/31/22 19:33> Clinical Impression: Back pain Disposition: HOME SELF-CARE Condition: Stable Instructions (If sedation given, give patient instructions): Back Pain (ED) Additional Instructions: Please do follow-up with primary care physician and your urologist in the next couple days for recheck. Have both physicians review computed tomography scan results. Previous. Return for increased pain, fever, vomiting, symptoms or other concerns. Referrals: Gabriel Kern MD [Primary Care Provider] - 1-2 days
[2022-08-31 17:34] LABS: Appearance,Urine Clear (Clear); Bilirubin,Urine Negative (Negative); Blood,Urine Negative (Negative); Color,Urine Light Yellow; Glucose,Urine (UA) Negative (Negative); Ketones,Urine Negative (Negative); Leukocyte Esterase,Urine Negative (Negative); Nitrite,Urine Negative (Negative); Protein,Urine Negative (Negative); Specific Gravity,Urine 1.008 (1.001-1.035); Urobilinogen,Urine <2.0 mg/dL (<2.0)
--- NOTE | 2022-08-31 17:53 | CT ---
EXAMINATION TYPE: CT abdomen pelvis wo con CT DLP: 1336.4 mGycm, Automated exposure control for dose reduction was used. DATE OF EXAM: 08/31/2022 5:26 PM COMPARISON: CT abdomen pelvis most recent from 04/02/2021 CLINICAL INDICATION:Male, 47 years old with history of left flank pain; left flank pain, hx of kidney stones. TECHNIQUE: Axial CT of the abdomen and pelvis. Sagittal and coronal reformats were created on a [employer]. workstation. Contrast used: None Oral contrast used: without Oral Contrast FINDINGS: LOWER CHEST: Unremarkable ABDOMEN LIVER: Unremarkable GALLBLADDER AND BILE DUCTS: Unremarkable. PANCREAS: Unremarkable. SPLEEN: Unremarkable. ADRENAL GLANDS: Unremarkable. KIDNEYS AND URETERS: Lobulated cystic lesion measuring 6.7 x 4.3 cm and the left kidney. Additional r ight-sided renal cyst measuring up to 2.9 cm. Nonobstructing calculi bilaterally measuring up to 7 mm on the left and 2 mm on the right. PELVIS BLADDER: Unremarkable REPRODUCTIVE: Unremarkable. ABDOMEN & PELVIS STOMACH AND BOWEL: No evidence of bowel obstruction. The appendix is normal. PERITONEUM/RETROPERITONEUM: No evidence of pneumoperitoneum or free fluid. VASCULATURE: Mild atherosclerotic calcifications are present throughout the abdominal aorta and its b ranches. No evidence of aortic aneurysm. MUSCULOSKELETAL: No acute osseous abnormalities, right hip arthroplasty changes hardware appears inta ct. Streak artifact limits evaluation the pelvis. Surgical changes of lower lumbar spine. At L5 and S 1. Hardware appears intact. Postsurgical changes to the posterior elements at L5-S1. LYMPH NODES: No gross evidence for lymphadenopathy. SOFT TISSUE/ABDOMINAL WALL: Small fat-containing umbilical hernia. IMPRESSION: 1. No evidence of left lower quadrant process to explain the patient's pain. 2. Bilateral nonobstructing renal calculi. No evidence of obstructive uropathy. 3. Colonic diverticulosis. 4. Left renal lobular cystic lesion, further evaluation MRI renal mass protocol is recommended for c omplete characterization.
[2022-08-31] MEDS ORDERED: SODIUM CHLORIDE 0.9% 500 ML 500 ML IV STA (17:59)
[2022-08-31] MEDS ORDERED: KETOROLAC 15 MG/ML 1 ML VIAL IVP STA (17:59)
[2022-08-31] MEDS ORDERED: METOCLOPRAMIDE 5 MG/ML 2 ML VIAL IVP STA (17:59)
[2022-08-31 18:26] LABS: Basophils % (A) 0 %; Eosinophils # (A) 0.2 k/uL (0-0.7); Eosinophils % (A) 2 %; HCT 40.5 % (39.0-53.0); HGB 14.3 gm/dL (13.0-17.5); Lymphocytes % (A) 33 %; MCH 32.3 pg (25.0-35.0); MCHC 35.4 g/dL (31.0-37.0); MCV 91.2 fL (80.0-100.0); Mean Platelet Volume 7.3; Monocytes # (A) 0.5 k/uL (0-1.0); Monocytes % (A) 6 %; Neutrophils # (A) 5.2 k/uL (1.3-7.7); Neutrophils % (A) 58 %; Platelet Count 412 k/uL (150-450); RBC 4.44 m/uL (4.30-5.90); RDW 12.2 % (11.5-15.5)
[2022-08-31 18:37] LABS: ALT 31 U/L (4-49); AST 26 U/L (17-59); African American GFR (CKD) >90 (>60 ml/min/1.73 sqM); Albumin 4.5 g/dL (3.5-5.0); Alkaline Phosphatase 75 U/L (38-126); Anion Gap 11 mmol/L; Blood Urea Nitrogen 13 mg/dL (9-20); Calcium 9.3 mg/dL (8.4-10.2); Carbon Dioxide 23 mmol/L (22-30); Chloride 104 mmol/L (98-107); Glucose 88 mg/dL (74-99); Lipase 43 U/L (23-300); Non-African American GFR(CKD) >90 (>60 ml/min/1.73 sqM); Potassium 3.7 mmol/L (3.5-5.1); Sodium 138 mmol/L (137-145); Total Bilirubin 0.5 mg/dL (0.2-1.3); Total Protein 7.3 g/dL (6.3-8.2)
[2022-08-31 19:41] VITALS: BP 110/79; PULSE 98; RESP 16
== END 2022-08-31 19:50 | disposition home or self-care (01) ==
LOC: EC 15:12
DX: M54.9 Dorsalgia, unspecified (principal); K21.9 Gastro-esophageal reflux disease without esophagitis; I10 Essential (primary) hypertension; F41.9 Anxiety disorder, unspecified; Z87.891 Personal history of nicotine dependence; Z91.048 Other nonmedicinal substance allergy status; Z79.899 Other long term (current) drug therapy
CPT/HCPCS: 36415; 80053; 83605; 83690; 85025; 81003; 74176; 99284; 96374; 96375; 96361; J2765; J1885

== ENCOUNTER → 2023-01-06 | Outpatient (CLI) | payer OTHER ==
[2023-01-06 10:57] LABS: Basophils # (A) 0.04 X 10*3/uL (0.00-0.10); Basophils % (A) 0.5 %; Eosinophils # (A) 0.25 X 10*3/uL (0.04-0.35); Eosinophils % (A) 2.9 %; HCT 40.8 % (39.6-50.0); HGB 14.3 d/dL (13.0-17.0); Lymphocytes # (A) 2.84 X 10*3/uL (0.90-5.00); Lymphocytes % (A) 32.9 %; MCH 32.1 pg (27.0-32.0); MCV 91.5 FL (80.0-97.0); Mean Platelet Volume 9.6 FL (9.5-12.2); Monocytes # (A) 0.52 X 10*3/uL (0.20-1.00); NRBC Per 100 WBC 0 X 10*3/uL (0.00-0.01); Neutrophils # (A) 4.91 X 10*3/uL (1.80-7.70); Neutrophils % (A) 56.9 %; Platelet Count 379 X 10*3/uL (140-440); RBC 4.46 X 10*6/uL (4.40-5.60); RDW 11.7 % (11.5-14.5); WBC 8.63 X 10*3/uL (4.50-10.00)
[2023-01-06 18:30] LABS: BUN/Creat Ratio 17.44 Ratio (12.00-20.00); Blood Urea Nitrogen 15.7 mg/dL (9.0-27.0); Calcium 9.5 mg/dL (8.7-10.3); Carbon Dioxide 23.1 mmol/L (21.6-31.8); Chloride 105 mmol/L (96-109); Glucose 99 mg/dL (70-110); Potassium 4.1 mmol/L (3.5-5.5); Sodium 143 mmol/L (135-145)
== END | disposition home or self-care (01) ==
LOC: LABWHC1 08:09
PROVIDERS: ATTEND Urology
DX: Z01.812 Encounter for preprocedural laboratory examination (principal); N20.0 Calculus of kidney
CPT/HCPCS: 36415; 80048; 85025

== ENCOUNTER → 2023-01-07 | Outpatient (CLI) | payer OTHER ==
--- NOTE | 2023-01-09 17:29 | MR ---
EXAMINATION TYPE: MR elbow RT wo con DATE OF EXAM: 01/07/2023 11:20 AM CLINICAL INDICATION:Male, 47 years old with history of S53.441A M77.11 RIGHT ELBOW; PHH, Rt elbow pa in worsening, hx of therapy, no specific injury COMPARISON: None. TECHNIQUE: Multiplanar multi-sequence imaging was performed of the elbow joint. No gadolinium given. FINDINGS: Ligaments and tendons: Partial tear at the common extensor origin near the lateral epicondyle measur ing approximately 8 x 12 mm. There is high PD signal seen within the tendon itself. Series 801 image 19 and series 501 image 17. There is no full-thickness tear identified. The tendon remains intact. The lateral ulnar collateral ligament, annular ligament, and lateral collateral ligament are intact. The common flexor tendon, biceps tendon, brachialis tendon, and triceps tendon are within normal dunne its. Osseous structures: The bone marrow signal intensity is unremarkable. A trace amount of joint fluid is noted. IMPRESSION: Common extensor tendon origin partial tear with associated mild edema.
== END | disposition home or self-care (01) ==
LOC: RADMRIMAIN 10:26
PROVIDERS: ATTEND Family Medicine
DX: S53.441A Ulnar collateral ligament sprain of right elbow, initial encounter (principal); M77.11 Lateral epicondylitis, right elbow; R60.0 Localized edema

== ENCOUNTER 2023-01-20 05:56 | Day surgery (SDC) | payer OTHER ==
--- NOTE | 2023-01-19 22:14 | P.GSHP ---
History of Present Illness H&P Date: 01/19/23 Chief Complaint: Left flank pain The patient is a 47-year-old male with a history of calcium oxalate urolithiasis. He presents with a several month history of left flank pain radiating to the left lower abdomen. A CT scan in August showed a large left renal cyst, as well as bilateral renal calculi measuring up to 2 mm on the right, 7 mm on the left. - Cardiovascular Cardiovascular: Reports high blood pressure - Gastrointestinal Gastrointestinal: Reports nausea - Genitourinary (Male) Genitourinary: Reports flank pain, Reports hematuria Past Medical History Past Medical History: GERD/Reflux, Hypertension, Musculoskeletal Disorder, Sleep Apnea/CPAP/BIPAP Additional Past Medical History / Comment(s): kidney stones, uses CPAP History of Any Multi-Drug Resistant Organisms: None Reported Past Surgical History: Back Surgery, Joint Replacement, Orthopedic Surgery Additional Past Surgical History / Comment(s): multiple back surgeries, right total hip arthroplasty, several kidney stone removals, left shoulder surgery, finger surgery-reattached was cut while in the [employer], to have Rt. elbow sx. 01/25/23 Past Anesthesia/Blood Transfusion Reactions: No Reported Reaction Smoking Status: Former smoker - Past Family History Mother Family Medical History: No Reported History Father Family Medical History: No Reported History Medications and Allergies Home Medications Medication Instructions Recorded Confirmed Type Omeprazole 20 mg PO DAILY 03/03/21 01/18/23 History Ascorbic Acid [Vitamin C] 2,000 mg PO DAILY 04/02/21 01/18/23 History Cholecalciferol [Vitamin D3 (25 25 mcg PO DAILY 04/02/21 01/18/23 History Mcg = 1000 Iu)] Potassium Citrate [Urocit-K] 15 meq PO TID 01/18/23 01/18/23 History QUEtiapine [SEROquel] 200 mg PO HS 01/18/23 01/18/23 History busPIRone HCL [Buspirone HCl] 10 mg PO TID 01/18/23 01/18/23 History hydroCHLOROthiazide [Hydrodiuril] 50 mg PO DAILY 01/18/23 01/18/23 History tiZANidine [Zanaflex] 4 mg PO BID PRN 01/18/23 01/18/23 History Allergies Allergy/AdvReac Type Severity Reaction Status Date / Time cat dander Allergy Unknown Verified 01/18/23 14:43 DUST MITES AdvReac Unknown Uncoded 01/18/23 14:43 Surgical - Exam - General well developed, well nourished, no distress - Respiratory normal respiratory effort - Abdomen Abdomen: soft, non tender, no guarding, no rigid, no rebound - Genitourinary normal penis with no external lesions, testicles non-tender - Psychiatric oriented to time, oriented to person, oriented to place, speech is normal, memory intact Results - Imaging CT scan - abdomen: report reviewed, image reviewed Assessment and Plan (1) Calculus of kidney Status: Acute Code(s): N20.0 - CALCULUS OF KIDNEY SNOMED Code(s): 67393646 Plan: Patient was offered the options of observation, extracorporal shockwave lithotripsy (ESWL), and ureteroscopy with laser lithotripsy/stent insertion. He has elected to undergo the latter. He is aware of potential risks, which include anesthesia, bleeding, infection, and ureteral injury.
[2023-01-20] MEDS ORDERED: HYDROmorphone 0.5 MG/0.5 ML SYRINGE IVP PRN (06:17)
[2023-01-20] MEDS ORDERED: ONDANSETRON 4 MG/2 ML VIAL IVP ONE (06:17)
[2023-01-20] MEDS ORDERED: DEXAMETHASONE SOD PHOSPHATE 4 MG/ML 1 ML VIAL IV ONE (06:17)
[2023-01-20] MEDS ORDERED: MIDAZOLAM 2 MG/2 ML VIAL IV PRN (06:17)
[2023-01-20] MEDS ORDERED: LIDOCAINE 1% (10MG/ML) FOR IV START INTRADERMA PRN (06:17)
[2023-01-20] MEDS ORDERED: LACTATED RINGERS 1,000 ML IV SCH (06:17)
[2023-01-20] MEDS ORDERED: LACTATED RINGERS 1,000 ML IV ONE (06:54)
[2023-01-20] MEDS ORDERED: FAMOTIDINE 20 MG/2 ML VIAL IVP ONE (07:09)
--- NOTE | 2023-01-20 07:12 | XR ---
EXAMINATION TYPE: XR KUB DATE OF EXAM: 01/20/2023 6:10 AM CLINICAL INDICATION:Male, 47 years old with history of Left Renal Calculi N20.0; COMPARISON: None. TECHNIQUE: One radiographic view of the abdomen was obtained. FINDINGS: The bowel gas pattern is nonspecific without dilated loops of small or large bowel. There i s no evidence for organomegaly or pneumoperitoneum. The osseous structures are intact. There remains inferior left renal pole calculi, Measuring up to 5 mm, previously 8 mm. Postsurgical changes to the right hip and spine. Removal of hardware from L5-S1 seen on prior. Fecal material and gas are demons trated throughout the colon and rectum. IMPRESSION: 1. Decrease in left renal calculus burden. 2. Nonspecific bowel gas pattern without radiographic evidence for acute process.
[2023-01-20] MEDS ORDERED: fentaNYL (PF) 50 MCG/ML 2 ML AMP ONE (07:27)
[2023-01-20] MEDS ORDERED: ROCURONIUM 10 MG/ML (5 ML VIAL) IV ONE (07:27)
[2023-01-20] MEDS ORDERED: HYDROmorphone (PF) 1 MG/ML ONE (07:27)
[2023-01-20] MEDS ORDERED: KETOROLAC 30 MG/ML 1 ML VIAL ONE (07:27)
[2023-01-20] MEDS ORDERED: LIDOCAINE 1% INJ 10MG/ML (20 ML MDV) ONE (07:27)
[2023-01-20] MEDS ORDERED: NEOSTIGMINE 1 MG/ML 10 ML VIAL ONE (07:27)
[2023-01-20] MEDS ORDERED: GLYCOPYRROLATE 0.2 MG/ML 2 ML VIAL ONE (07:27)
[2023-01-20] MEDS ORDERED: SUCCINYLCHOLINE CHLORIDE 200 MG/10 ML VIAL IV ONE (07:27)
[2023-01-20] MEDS ORDERED: PROPOFOL 10 MG/ML 20 ML VIAL IV ONE (07:27)
[2023-01-20] MEDS ORDERED: MIDAZOLAM 2 MG/2 ML VIAL ONE (07:27)
[2023-01-20] MEDS ORDERED: IOPAMIDOL-370 100ML BTL MISCELLANE ONE (07:51)
--- NOTE | 2023-01-20 08:45 | FL ---
EXAMINATION TYPE: FL guidance operating room DATE OF EXAM: 01/20/2023 HISTORY: Fluoroscopy time Total dose area product (DAP) in uGy*m?, mGy*cm? (or similar): 0.64401 IMPRESSION: 1. Fluoroscopy time.
[2023-01-20] MEDS ORDERED: HYDROmorphone 0.5 MG/0.5 ML SYRINGE IVP ONE (08:59)
[2023-01-20 09:12] VITALS: RESP 16; TEMP 97.6
[2023-01-20 10:19] VITALS: PULSE 73
[2023-01-20 10:41] VITALS: BP 138/74
== END 2023-01-20 11:01 | disposition home or self-care (01) ==
LOC: OR 05:56
PROVIDERS: ATTEND Urology
DX: N20.0 Calculus of kidney (principal); I10 Essential (primary) hypertension; K21.9 Gastro-esophageal reflux disease without esophagitis; G47.30 Sleep apnea, unspecified; M19.90 Unspecified osteoarthritis, unspecified site; Z87.891 Personal history of nicotine dependence; Z87.442 Personal history of urinary calculi; Z79.899 Other long term (current) drug therapy
CPT/HCPCS: 82365; 74018; C2625; C1758; C1769; J2250; J0330; J1100; J2710; J0690; J2405; J2001; J3010; J1885; J3490; J1170 ×2; J2704; Q9967

== ENCOUNTER → 2023-03-25 | Outpatient (CLI) | payer OTHER ==
--- NOTE | 2023-03-26 13:57 | US ---
EXAMINATION TYPE: US kidneys/renal and bladder DATE OF EXAM: 03/25/2023 COMPARISON: 09/02/2021 CLINICAL INDICATION: Male, 47 years old with history of N20.0 CALCULUS OF KIDNEY; EXAM MEASUREMENTS: Right Kidney: 12.7 x 7.8 x 5.5 cm Left Kidney: 14.2 x 5.8 x 6.1 cm Post Void Residual Volume: NA mL Right Kidney: Mid medullary simple appearing Cyst = 2.0 x 2.5 x 2.2 cm . Enlarged from 2021. Left Kidney: Inferior pole simple cyst = 4.6 x 4.7 x 4.4 cm , similar to comparison Bladder: WNL Bilateral Jets seen: Yes Normal Post Void Residual: NA IMPRESSION: 1. Enlarging medullary cyst right kidney. 2. Inferior pole left renal cyst appears stable
== END | disposition home or self-care (01) ==
LOC: RADUSWWP 14:15
PROVIDERS: ATTEND Urology
DX: N28.1 Cyst of kidney, acquired (principal); N20.0 Calculus of kidney
CPT/HCPCS: 76770

== ENCOUNTER → 2023-07-27 | Outpatient (CLI) | payer OTHER ==
--- NOTE | 2023-07-27 14:25 | NM ---
EXAMINATION TYPE: NM bone 3 phase DATE OF EXAM: 07/27/2023 COMPARISON: X-ray 07/19/2023 CLINICAL INDICATION: Male, 47 years old with history of M79.661 PAIN IN RIGHT LOWER LEG; Triple phase bone scintigraphy was performed following the injection of 19.6 mCi Tc 99m MDP. Immedia te images and 5.25 hours post injection images acquired. FINDINGS: There is symmetric flow to the bilateral hip. Blood pool imaging demonstrates symmetric bilateral soft tissue uptake. Photopenic defect seen involving the right hip prostheses on delayed imaging. No abnormal uptake seen surrounding the prosthesis. Abnormal uptake involving the knees likely post arthritic. There is mild intensity uptake L5-S1 likel y degenerative. IMPRESSION: Postsurgical change right hip. No abnormal uptake surrounding the right hip prostheses.
== END | disposition home or self-care (01) ==
LOC: RADNMMAIN 07:26
PROVIDERS: ATTEND Orthopaedic Surgery
DX: M79.661 Pain in right lower leg (principal)
CPT/HCPCS: 78315; A9503

== ENCOUNTER → 2023-08-17 | Outpatient (CLI) | payer OTHER ==
--- NOTE | 2023-08-18 06:26 | MR ---
EXAMINATION TYPE: MR knee RT wo con DATE OF EXAM: 08/17/2023 COMPARISON: Outside right knee x-ray August 05, 2023 HISTORY: Chronic right knee pain with locking and swelling for 15 to 20 years, hx injury. TECHNIQUE: Multiplanar, multisequence images of the knee is performed without IV contrast. FINDINGS: MEDIAL MENISCUS: Anterior and posterior horns are intact without tear. LATERAL MENISCUS: Anterior and posterior horns are intact without tear. CRUCIATE LIGAMENTS: The anterior and posterior cruciate ligaments are intact and unremarkable. COLLATERAL LIGAMENTS: The medial collateral ligament and lateral collateral ligament complex are inta ct and unremarkable. EXTENSOR MECHANISM: Visualized quadriceps and patellar tendons are intact. EFFUSION: No significant suprapatellar joint effusion. POPLITEAL CYST: No popliteal/childers cyst. TRICOMPARTMENT SPACES: Tricompartment joint spaces are preserved. No significant spurring is seen. CARTILAGE: Tricompartmental articular cartilage is maintained. BONE MARROW SIGNAL: No focal abnormal marrow signal is appreciated. OTHER: Slightly suboptimal due to susceptibility artifact along the posterior aspect of the proximal tibia and fibula. IMPRESSION: No meniscal or ligamentous tear is seen.
== END | disposition home or self-care (01) ==
LOC: RADMRIMAIN 13:06
PROVIDERS: ATTEND Orthopaedic Surgery
DX: M25.561 Pain in right knee (principal); M25.461 Effusion, right knee

== ENCOUNTER → 2024-05-17 | Day surgery (SDC) | payer OTHER ==
[2024-05-15 11:52] VITALS: BMI 37.6
[~2024-05-17] MED LIST changes: -ACETAMINOPHEN TAB 500 MG TAB PO PRN; -DEXAMETHASONE SOD PHOSPHATE 4 MG/ML 1 ML VIAL IV ONE; -GABAPENTIN 300 MG CAP PO PRN; -HYDROmorphone 0.5 MG/0.5 ML SYRINGE IVP PRN; +MIDAZOLAM 2 MG/2 ML VIAL ONE; -ONDANSETRON 4 MG/2 ML VIAL IVP ONE; -ONDANSETRON 4 MG/2 ML VIAL IVP PRN; +ROPIVACAINE 5MG/ML 20ML VIAL ONE; -TRANEXAMIC ACID IN NACL,ISO-OS 1,000 MG in SALINE 1 100ML.BAG IVPB PRN; -ceFAZolin 3 GM in SODIUM CHLORIDE 0.9% 100 ML IVPB PRN; +fentaNYL (PF) 50 MCG/ML 2 ML AMP ONE
[2024-05-17] MEDS: IV FLUID CONTINUATION 1,000 ML IV ONE ×2 (06:51→07:29)
[2024-05-17 06:53] VITALS: TEMP 97
--- NOTE | 2024-05-17 07:38 | P.PCN ---
Description of Procedure: Preprocedure diagnosis. 1. Lumbar spondylosis with facet joint arthropathy without myelopathy. 2. Lumbar degenerative disc disease. Postprocedure diagnosis. As above. Procedure done. Bilateral diagnostic block with local anesthetics at L3, L4, L2 medial branch to target the facet joint L4- 5 and L3-4 with fluoroscopic guidanc e (fluoroscopy images are available in the radiology department) . Anesthesia. Moderate sedation with intravenous Versed 2 mg and fentanyl 150 mcg and local infiltration with local anesthetics. In OR, continuous pulse ox, EKG, blood pressure and verbal communication was maintained. Sedation time-start 07 end 07 . Blood loss. Minimal. Indication. The patient has low back pain secondary to lumbar facet joint arthropathy. Discussed the procedure and alternative and complications which includes infection, bleeding, nerve damage, paralysis ,aggravation of pain. Patient understands and all questions were answered. Patient iunderstands that if any pain relief occurs it will last for a few hours to a few days maximum. Procedure description. After getting consent patient was taken in the OR in prone position. Back prepped with chlorhexidine and draped in sterile fashion. With slight oblique fluoroscope, after injecting 5 mL of plain 1% lidocaine subcutaneously, a 22-gauge spinal needle was introduced under tunnel vision of the fluoroscope at the junction of the superior articular process with RIGHT L5 transverse process, junction of the superior articular process with the RIGHT L4 and L3 transverse process. Negative CSF, negative blood, negative paresthesia. After needle position confirmation by AP and crosstable lateral view, after negative aspiration, half milliliters of solution were injected at each point. Total 1-1/2 mL of solution was injected on the right side which consists of 0.5% ropivacaine. In exactly same way, LEFT sided injections were done at the following 3 points. Junction of the superior articular process with left L3 transverse process, junction of the superior articular process with the left L5 transverse process, junction of the superior articular process with left L4 transverse process using 0.5 mL of solution at each point. Total 1-1/2 mL of solution was injected on the left side which consists of 0.5% ropivacaine . Spinal needles were taken out and bandages were applied. Disposition. Patient tolerated the procedure well. No complication. Discharged home in stable condition
--- NOTE | 2024-05-17 07:39 | FL ---
EXAMINATION TYPE: FL guided pain mgmt statistic DATE OF EXAM: 05/17/2024 CLINICAL INDICATION: Male, 48 years old with history of FACET BLOCK KAYLIN LUMBAR; PHH, pain. TECHNIQUE: Fluoroscopy. COMPARISON: None. FINDINGS: Fluoroscopic guidance was provided during pain relief procedure performed by Dr. Davis . A total of 46.3 seconds of fluoroscopic time was utilized during the procedure and 3 spot images are acquired. Images acquired shows needle localization at several levels in the lumbar spine. Surgical c hange in the upper sacrum is partially imaged. Total DAP: [id number] mGym2. IMPRESSION: As Above. [facility], , 05/17/2024 7:36 AM
[2024-05-17 07:47] VITALS: BP 110/75; PULSE 71; RESP 14
== END ==
LOC: ORPAIN 06:15
PROVIDERS: ATTEND Pain Medicine Interventional Pain Medicine
DX: M47.816 Spondylosis without myelopathy or radiculopathy, lumbar region (principal); M51.369 Other intervertebral disc degeneration, lumbar region without mention of lumbar back pain or lower extremity pain
CPT/HCPCS: 64493; 64494; J2250; J3010; J2795; 99152

== ENCOUNTER → 2024-06-04 | Outpatient (CLI) | payer OTHER ==
[2024-06-04 11:18] VITALS: BP 124/93; PULSE 83; RESP 20; TEMP 98.3
--- NOTE | 2024-06-06 12:28 | P.PAINPG ---
PQRS Measure Charge Sheet Comment: HISTORY OF PRESENT ILLNESS: A 48 yr old male as a referral from the [facility] presents today w severe and chronic LBP > 1yr secondary to posterior L5-S1 PLIF, ALIF w decompression & hardware/ removal for evaluation s/p BL MBB L3-L4, L4-L5 #1. Pt states he experienced 70% pain relief x 24 hrs s/p procedure. Pt states pain level is provoked at 8 /10 in intensity, constant, localized in the lumbar spine, predominantly axial, achy in character w occasional shooting pain towards the jips. Pain is provoked by over activity. Pain is alleviated by PT x 8 wks which ended in Mar 2024, physician guided home stretches daily since mar 2024, medications, topical, repositioning and rest . Interventional procedures include L5-S1 PLIF, ALIF w Decompression Hardware/ Removal, BL MBB L3-L4/ L4-L5 x1 Medications include Brea, Mobic, CBD Oil, BioFreeze REVIEW OF ORGAN SYSTEMS: CONSTITUTIONAL: No fevers or chills. No recent weight loss. NEUROLOGICAL: + numbness and tingling along the distal extremities. No seizure disorders or headaches. MUSCULOSKELETAL: + pain PSYCHIATRIC: Denies current depression or suicidal thoughts. Physical Examinations : Constitutional : Cooperative , not in acute distress . Neurologic : Cranial nerve II to XII intact. No focal neurological deficits. Psychiatric : alert & oriented x 3. Matching mood & appropriate affect. Judgment & insight intact. Musculoskeletal : Cervical Spine Motor strength in the deltoid and biceps: Normal right side. Normal Left side Motor strength biceps and the wrist extensors: Normal right side . Normal left side Motor strength in the triceps muscle: Normal right side. Normal left side Deep tendon reflexes: Normal at the biceps. Normal at Brachioradialis. Normal at triceps Vertebral body tenderness to deep palpation over Cervical facet loading test: positive bilaterally Spurling test: positive bilaterally Neck distraction test: positive bilaterally Jeniffer sign: positive bilaterally Lumbar spine +Incisional Scar Motor strength lower extremities ,thigh and legs 5/5 Right side , 5/5 Left side Deep tendon reflexes : Normal Knee Jerk. Normal Ankle Jerk Vertebral body tenderness over Vo Test positive Lumbar facet Loading Test: positive Right / positive Left L3-L4, L4-L5 Range of motion of the lumbar spine Flexion 30 degrees, extension 10 degrees Straight Leg Raise test: Left/ Right positive at degrees Gene test: positive right / positive left. Severe tenderness over the Sacroiliac joint on the Right / Left sides Gaenslen test: positive bilaterally Seated flexion test: positive bilaterally. Sacral spine : Severe tenderness over the Sacroiliac joint: right side / left side Range of motion: Flexion of the lumbar spine <60 degrees Range of motion: Extension of the lumbar spine <20 degrees Gaenslen's Test positive Gene test: positive right side / left side Thigh Thrust Test Sacral Thrust Test Imaging: MRI non contrast lumbar spine from 02/29/24 reviewed Assessment/ Plan : posterior L5-S1 ALIF, PLIF w decompression w hardware & removal Recommendation of followup w orthopedic surgeon to explore additional treatment options. All questions answered. I have spent greater than 30 minutes on patient care today. Dr Whittaker was available by phone for the evaluation of this patient. The time was used to review the medical records including relevant urine studies and Prescription history (MAPs), review of the available imaging, evaluation and examination of the patient, coordination of care with the medical staff and if applicable referring physicians, as well as creation of the medical record PQRS Narrative: Hx Alcohol Use (MH) No Home Medications: Ambulatory Orders Omeprazole 20 mg PO DAILY 03/03/21 Ascorbic Acid [Vitamin C] 2,000 mg PO DAILY 04/02/21 Cholecalciferol [Vitamin D3 (25 Mcg = 1000 Iu)] 25 mcg PO DAILY 04/02/21 QUEtiapine [SEROquel] 200 mg PO HS 01/18/23 busPIRone HCL [Buspirone HCl] 10 mg PO TID 01/18/23 hydroCHLOROthiazide [Hydrodiuril] 50 mg PO DAILY 01/18/23 HYDROcodone/APAP 7.5-325MG [Brea 7.5-325] 1 tab PO DAILY PRN 05/15/24 Controlled Substance Measures - Controlled Substance Measures Is patient prescribed a controlled substance at discharge?: No
== END ==
LOC: PNWHC3 10:58
PROVIDERS: ATTEND Specialist
DX: M43.27 Fusion of spine, lumbosacral region (principal); F12.90 Cannabis use, unspecified, uncomplicated; Z91.09 Other allergy status, other than to drugs and biological substances; Z91.048 Other nonmedicinal substance allergy status
CPT/HCPCS: 99212